=== PATIENT | female | born 1985 | race Caucasian/White ===

== ENCOUNTER 2017-12-26 15:38 | Inpatient (IN) | payer OTHER ==
[2017-12-26 15:42] VITALS: BMI 23.8
--- NOTE | 2017-12-26 16:10 | PDOC ---
History of Present Illness - General Chief Complaint: Pain Stated Complaint: ABD PAIN Time Seen by Provider: 12/26/17 15:53 - History of Present Illness Initial Comments: 12/26/17 16:21 The patient is a 32 year old female with a history of gestational diabetes who presents for evaluation of abdominal pain. The patient reports a 4 day history of crampy epigastric abdominal pain with radiation into her back that has not improved prompting her presentation to the ED for further evaluation. She reports some nausea, but otherwise denies fevers, chills, SOB, chest pain, vomiting, or changes with urination or bowel movements. Past History - Past Medical History Allergies/Adverse Reactions: Allergies Allergy/AdvReac Type Severity Reaction Status Date / Time No Known Allergies Allergy Verified 12/26/17 15:42 Home Medications: Ambulatory Orders Pantoprazole Sodium [Protonix] 40 mg PO DAILY #14 tablet. 11/24/14 Metformin HCl 500 mg PO DAILY 12/26/17 Asthma: No Cancer: No Cardiac Disorders: No COPD: No Diabetes: Yes (gestational 1ST PREG) HTN: No Seizures: No Thyroid Disease: No - Surgical History Cholecystectomy: Yes - Reproductive History (#): 2 Para: 0 Therapeutic (s) & number: No Spontaneous : 1 - Immunization History Immunization Up to Date: Yes - Suicide/Smoking/Psychosocial Hx Smoking Status: No Smoking History: Never smoked Number of Cigarettes Smoked Daily: 0 Hx Alcohol Use: No Drug/Substance Use Hx: No Substance Use Type: None Hx Substance Use Treatment: No Review of Systems - Review of Systems Comments:: 12/26/17 16:29 Constitutional: No fevers, chills, fatigue, malaise HEENT: No Rhinorrhea, nasal congestion, visual changes Cardiovascular: No chest pain, syncope, palpitations, lightheadedness Respiratory: No Cough, SOB, Hemoptysis, Gastrointestinal: Abdominal pain, Nausea. No Vomiting, Constipation, Diarrhea, Melena Genitourinary: No Dysuria, Frequency, Urgency, Hesitancy, Hematuria, Flank pain Musculoskeletal: No Myalgia, arthralgia Skin: No rashes, itching, bruising, pallor Neurologic: No Headache, Dizziness, Numbness, Weakness, or Tingling Psychiatric: No Hallucinations. No SI or HI *Physical Exam - Vital Signs Last Vital Signs Temp Pulse Resp BP Pulse Ox 98.3 F 101 H 20 149/88 99 12/26/17 15:40 12/26/17 15:40 12/26/17 15:40 12/26/17 15:40 12/26/17 15:40 - Physical Exam Comments: 12/26/17 16:30 General Appearance: Nourished. No Apparent Distress HEENT: EOMI, LUCIA. No Pharyngeal Erythema, Tonsillar Exudate, Tonsillar Erythema Neck: No Cervical Lymphadenopathy Respiratory/Chest: Lungs Clear, Normal Breath Sounds. No Crackles, Rales, Rhonchi, Wheezing Cardiovascular: Regular Rhythm, Regular Rate. No Murmur, Gallops, Rubs Gastrointestinal/Abdominal: Normal Bowel Sounds, Soft. Mild tenderness to deep palpation in the epigastric region. No Guarding, Rebound, Musculoskeletal: No CVA Tenderness Extremity: Normal Capillary Refill Integumentary: Normal Color, Dry, Warm Neurologic: Fully Oriented, Alert, Normal Mood/Affect, Normal Response, ED Treatment Course - LABORATORY CBC & Chemistry Diagram: 12/27/17 06:15 12/27/17 06:15 Medical Decision Making - Medical Decision Making 12/26/17 16:30 The patient is a 32 year old female with a history of gestational diabetes who presents for evaluation of abdominal pain. Differential includes but is not limited to: ACS, Gastritis, Pancreatitis, infectious, metabolic derangement. Given the patient's history and physical exam, it is likely her symptoms are due to a gastritis. However we will obtain a cbc, cmp, troponin, lipase, ekg to evaluate further. We will treat in the meantime with iv fluids, pepcid, maalox, viscous lidocaine. We will continue to monitor and reassess in the meantime. 12/26/17 18:41 CBC is unremarkable. CMP demonstrates an elevated t.bili to 3.9 as well as elevations in the patient's liver enzymes. We are concerned for a choledocholethiasis. We will obtain an abdominal US to evaluate further and continue to monitor and reassess. Patient dispo pending US of the abdomen. 12/26/17 18:52 *DC/Admit/Observation/Transfer Diagnosis at time of Disposition: Choledocholithiasis, Transaminitis - Discharge Dispostion Condition at time of disposition: Fair - Referrals - Patient Instructions - Post Discharge Activity
[2017-12-26] MEDS ORDERED: LIDOCAINE VISCOUS 2% ORAL/TOP 20 ML UNIT-DOSE CUP MM ONE (16:11)
[2017-12-26] MEDS ORDERED: SODIUM CHLORIDE 1,000 ML IV STA (16:11)
[2017-12-26] MEDS ORDERED: FAMOTIDINE 20 MG/50 ML IVPB 20 MG/50 ML MG IVPB ONE ×2 (16:11→16:27)
[2017-12-26] MEDS ORDERED: ONDANSETRON 4 MG/2 ML VIAL IVPUSH ONE (16:11)
[2017-12-26] MEDS ORDERED: MAG HYDROX/AL HYDROX/SIMETH 30 ML UNIT-DOSE CUP PO ONE (16:11)
--- NOTE | 2017-12-26 16:19 | PDOC ---
Attending Attestation - Medical Decision Making 12/26/17 16:57 ekg nsr @ 78 bpm <Maria Isabel Holley - Last Filed: 12/26/17 16:57> - Resident Resident Name: Lele Claudio - ED Attending Attestation I have performed the following: I have examined & evaluated the patient, The case was reviewed & discussed with the resident, I agree w/resident's findings & plan, Exceptions are as noted - HPI HPI: 12/26/17 16:18 32 yo female p/w epigastric pain - Physicial Exam PE: 12/26/17 18:30 32 yo female p/w epigastric pain with nausea head ncat neck supple lungs cta b/l cvs [id number] abd ++epigastric tenderness ext no e/c/c neuro axox3, ambulatory,no gross deformity - Medical Decision Making 12/26/17 18:37 all her LFTs are elevated imaging pending 12/26/17 23:53 US dilated CBD, 7mm stone in duct, pt admitted <Candace Marcos - Last Filed: 12/26/17 23:54>
[2017-12-26] MEDS ORDERED: ONDANSETRON 4 MG/2 ML VIAL ONE (16:27)
[2017-12-26] MEDS ORDERED: MAG HYDROX/AL HYDROX/SIMETH 30 ML UNIT-DOSE CUP ONE (16:27)
[2017-12-26] MEDS ORDERED: LIDOCAINE VISCOUS 2% ORAL/TOP 20 ML UNIT-DOSE CUP ONE (16:27)
[2017-12-26 16:46] LABS: BASO % 0.6 % (0-2.0); EOS % 0.5 % (0-4.5); HEMATOCRIT 36.6 % (32.4-45.2); HEMOGLOBIN 12.1 GM/dL (10.7-15.3); LYMPH % 18.3 % (8-40); MCH 26.7 pg (25.7-33.7); MCHC 33.1 g/dl (32.0-36.0); MEAN CELL VOLUME 80.6 fl (80-96); MEAN PLT VOLUME 9.6 fl (7.5-11.1); MONO % 7.6 % (3.8-10.2); PLATELET COUNT 195 K/MM3 (134-434); RBC 4.54 M/mm3 (3.60-5.2); RDW 13.9 % (11.6-15.6); WHITE BLOOD COUNT 5.4 K/mm3 (4.0-10.0)
[2017-12-26 16:47] LABS: URINE APPEARANCE CLEAR; URINE BILIRUBIN NEGATIVE (<2.0 mg/dL); URINE COLOR YELLOW; URINE GLUCOSE (UA) 3+ (NEGATIVE); URINE KETONE NEGATIVE (NEGATIVE); URINE LEUK ESTERASE NEGATIVE (NEGATIVE); URINE NITRITE NEGATIVE (NEGATIVE); URINE PROTEIN NEGATIVE (NEGATIVE); URINE UROBILINOGEN NEGATIVE mg/dL (0.2-1.0)
[2017-12-26 17:11] LABS: ALBUMIN 3.9 g/dl (3.4-5.0); ANION GAP 7 (8-16); BLOOD UREA NITROGEN 5 mg/dL (7-18); CALCIUM 8.3 mg/dL (8.5-10.1); CHLORIDE 105 mmol/L (98-107); CO2 25 mmol/L (21-32); CREATININE 0.9 mg/dL (0.55-1.02); GLUCOSE,RANDOM 206 mg/dL (74-106); LIPASE 149 U/L (73-393); POTASSIUM 3.6 mmol/L (3.5-5.1); SGOT/AST 116 U/L (15-37); SGPT/ALT 395 U/L (12-78); SODIUM 137 mmol/L (136-145)
[2017-12-26 17:16] LABS: ALK PHOS 406 U/L (45-117); BILIRUBIN,TOTAL 3.9 mg/dL (0.2-1.0); TOT PROT 8.1 g/dl (6.4-8.2)
--- NOTE | 2017-12-26 20:18 | PDOC ---
*Physical Exam - Vital Signs Last Vital Signs Temp Pulse Resp BP Pulse Ox 98.3 F 101 H 20 149/88 99 12/26/17 15:40 12/26/17 15:40 12/26/17 15:40 12/26/17 15:40 12/26/17 15:40 12/26/17 19:[address] Claudio at the end of his shift. Patient is a 32 YOF who p /w epigastric pain radiating to her back and nausea. Pain improved but still present after ED medications. Patient had US here in the ED already and now awaiting imaging immigration paralegal results. ED Treatment Course - LABORATORY CBC & Chemistry Diagram: 12/26/17 16:38 12/26/17 16:38 - ADDITIONAL ORDERS Additional order review: Laboratory Results 12/26/17 12/26/17 16:38 16:38 Sodium 137 Potassium 3.6 Chloride 105 Carbon Dioxide 25 Anion Gap 7 L BUN 5 L Creatinine 0.9 Creat Clearance w eGFR > 60 Random Glucose 206 H Calcium 8.3 L Total Bilirubin 3.9 H D AST 116 H ALT 395 H Alkaline Phosphatase 406 H Creatine Kinase 94 Troponin I < 0.02 Total Protein 8.1 Albumin 3.9 Lipase 149 Urine Color Yellow Urine Appearance Clear Urine pH 6.0 Ur Specific [place] 1.001 Urine Protein Negative Urine Glucose (UA) 3+ H Urine Ketones Negative Urine Blood Negative Urine Nitrite Negative Urine Bilirubin Negative Urine Urobilinogen Negative Ur Leukocyte Esterase Negative 12/26/17 16:38 RBC 4.54 MCV 80.6 MCHC 33.1 RDW 13.9 MPV 9.6 Neutrophils % 73.0 Lymphocytes % 18.3 Monocytes % 7.6 Eosinophils % 0.5 Basophils % 0.6 - Medications Given in the ED: ED Medications Discontinued Medications Generic Name Dose Route Start Last Admin Trade Name Freq PRN Reason Stop Dose Admin Al Hydroxide/Mg Hydroxide 30 ml 12/26/17 16:11 12/26/17 16:43 Mylanta Oral Suspension - PO 12/26/17 16:12 30 ml ONCE ONE Administration Famotidine/Sodium Chloride 20 mg in 50 mls @ 100 mls/hr 12/26/17 16:11 16:43 Pepcid 20 Mg Premixed Ivpb - IVPB 12/26/17 16:40 100 mls/hr ONCE ONE Administration Sodium Chloride 1,000 mls @ 1,000 mls/hr 12/26/17 16:11 12/26/17 16:39 Normal Saline - IV 12/26/17 17:10 1,000 mls/hr ASDIR STA Administration Lidocaine HCl 20 ml 12/26/17 16:11 12/26/17 16:43 Xylocaine 2% Viscous Oral - MM 12/26/17 16:12 20 ml ONCE ONE Administration Ondansetron HCl 4 mg 12/26/17 16:11 12/26/17 16:43 Zofran Injection IVPUSH 12/26/17 16:12 4 mg ONCE ONE Administration Medical Decision Making - Medical Decision Making Imaging immigration paralegal report shows CBD dilatation to 13mm, stone with diameter 7mm, wall thickening to 4mm. 12/26/17 21:[address] Starks who will see the patient in consult. Consult order placed to Dr. Starks. Spoke with Dr. Webb who is immigration paralegal for Dr. Dunne. He recommends NPO, Zosyn, ensure coags and T&S done. Consult order placed for Dr. Dunne with GI. Anne ordered as well as another 1000cc IVF. *DC/Admit/Observation/Transfer Diagnosis at time of Disposition: Choledocholithiasis, Transaminitis - Discharge Dispostion Condition at time of disposition: Guarded Admit: Yes - Referrals Referrals: Aleena Sanchez MD [Primary Care Provider] - - Patient Instructions - Post Discharge Activity
--- NOTE | 2017-12-26 21:31 | PN ---
Teaching Attending Note Name of Resident: Nancy Bean ATTENDING PHYSICIAN STATEMENT I saw and evaluated the patient. I reviewed the resident's note and discussed the case with the resident. I agree with the resident's findings and plan as documented. SUBJECTIVE: 32 yo F who presents with abd pain, DM, located in her right upper quadrant. States her pain is located in her epigastric area and is constant. No N, V, D. No fevers or chills. No chest pain or pressure. OBJECTIVE: Physical: VS: Vital Signs Period Temp Pulse Resp BP Sys/Russ Pulse Ox Last 24 Hr 98.3 F 88-101 18-20 125-149/82-88 99-100 GEN: NAD, Resting in bed, AA0X3 HEENT: NCAT, PERRL, Throat without erythema or exudates CARD: RRR S1, S2 RESP: CTAB ABD: BS X4, Mild laya-epigastric tendernss on palpation EXT: - C/C/E CBCD WBC 5.4 K/mm3 (4.0-10.0) D 12/26/17 16:38 RBC 4.54 M/mm3 (3.60-5.2) 12/26/17 16:38 Hgb 12.1 GM/dL (10.7-15.3) 12/26/17 16:38 Hct 36.6 % (32.4-45.2) 12/26/17 16:38 MCV 80.6 fl (80-96) 12/26/17 16:38 MCHC 33.1 g/dl (32.0-36.0) 12/26/17 16:38 RDW 13.9 % (11.6-15.6) 12/26/17 16:38 Plt Count 195 K/MM3 (134-434) 12/26/17 16:38 MPV 9.6 fl (7.5-11.1) 12/26/17 16:38 CMP Sodium 137 mmol/L (136-145) 12/26/17 16:38 Potassium 3.6 mmol/L (3.5-5.1) 12/26/17 16:38 Chloride 105 mmol/L (98-107) 12/26/17 16:38 Carbon Dioxide 25 mmol/L (21-32) 12/26/17 16:38 Anion Gap 7 (8-16) L 12/26/17 16:38 BUN 5 mg/dL (7-18) L 12/26/17 16:38 Creatinine 0.9 mg/dL (0.55-1.02) 12/26/17 16:38 Creat Clearance w eGFR > 60 (>60) 12/26/17 16:38 Random Glucose 206 mg/dL (74-106) H 12/26/17 16:38 Calcium 8.3 mg/dL (8.5-10.1) L 12/26/17 16:38 Total Bilirubin 3.9 mg/dL (0.2-1.0) H D 12/26/17 16:38 AST 116 U/L (15-37) H 12/26/17 16:38 ALT 395 U/L (12-78) H 12/26/17 16:38 Alkaline Phosphatase 406 U/L (45-117) H 12/26/17 16:38 Total Protein 8.1 g/dl (6.4-8.2) 12/26/17 16:38 Albumin 3.9 g/dl (3.4-5.0) 12/26/17 16:38 CARDIAC ENZYMES Creatine Kinase 94 IU/L (26-192) 12/26/17 16:38 Troponin I < 0.02 ng/ml (0.00-0.05) 12/26/17 16:38 ABD US: Cholithiasis with thickened gallbladder and dilated CBD. 7mm Gallstone. ASSESSMENT AND PLAN: 32 F with Right Upper Quadrant Pain with gallstone and increased LFTS. 1.) ABD Pain- Choledocholithiasis - NPO - Stat urine HCG - GI for ERCP - CBC, coags - Zosyn in ED - ID consult - Type & Screen - SX/GI consult 2.) DM - FS - RAISS - Hold Metformin 2.) DVT Ppx - SCDs Place in Med-Sx
[2017-12-26] MEDS ORDERED: SODIUM CHLORIDE 0.9% 500 ML INFUS.BAG IV ONE (21:36)
--- NOTE | 2017-12-26 21:36 | CONSULT ---
Consult Consult Specialty:: general surgery Referred by:: Dr. Hernandez Reason for Consultation:: choledocholithiasis - History of Present Illness Chief Complaint: epigastric pain History of Present Illness: 32 yo female PMH Diabetes,presented to the emergency department with 10/10, constant, epigastric pain with radiation to the back that started on Wednesday. Movement and eating aggravates the pain. Patient says she has not eaten much since Wednesday. She has been nauseas and vomited once on Wednesday with no memory of the description. Patient presented in 2012 for abdominal pain and was told to have a cholecystectomy but she said she was at the time. She also said she couldn't follow up after was because she lost her insurance. Patient denies chest pain, fevers, sob, dizziness, dysuria, diarrhea, blood in stool. We were asked to assess. - History Source History Provided By: Patient, Medical Record Limitations to Obtaining History: No Limitations - Past Medical History ...LMP: 07/16/14 - Alcohol/Substance Use Hx Alcohol Use: No - Smoking History Smoking history: Never smoked Aproximately how many cigarettes per day: 0 Home Medications - Allergies Allergies/Adverse Reactions: Allergies Allergy/AdvReac Type Severity Reaction Status Date / Time No Known Allergies Allergy Verified 12/26/17 15:42 - Home Medications Home Medications: Ambulatory Orders Pantoprazole Sodium [Protonix] 40 mg PO DAILY #14 tablet. 11/24/14 Metformin HCl 500 mg PO DAILY 12/26/17 Review of Systems - Review of Systems Constitutional: denies: Chills, Fever Eyes: denies: Blurred Vision, Recent Change in Vision HENT: denies: Difficult Swallowing, Throat Pain Neck: denies: Stiffness, Swollen Glands, Tenderness Cardiovascular: denies: Chest Pain, Palpitations Respiratory: denies: Cough, SOB Gastrointestinal: reports: Abdominal Pain, Indigestion Genitourinary: denies: Discharge, Dysuria Breasts: reports: No Symptoms Reported. denies: Pain Musculoskeletal: denies: Muscle Pain, Muscle Weakness Integumentary: denies: Lesions, Rash Neurological: denies: Change in LOC, Change in Speech Endocrine: denies: Unexplained Weight Gain, Unexplained Weight Loss Hematology/Lymphatic: denies: Easily Bruised, Excessive Bleeding Psychiatric: denies: Anxiety, Depression Physical Exam Vital Signs: Vital Signs Temperature 98.3 F 12/26/17 15:40 Pulse Rate 88 12/26/17 21:08 Respiratory Rate 18 12/26/17 21:08 Blood Pressure 125/82 12/26/17 21:08 O2 Sat by Pulse Oximetry (%) 100 12/26/17 21:08 Vital Signs Period Temp Pulse Resp BP Sys/Russ Pulse Ox Last 24 Hr 98 F-99.2 F 72-101 16-20 125-149/71-88 98-100 Intake & Output 12/26/17 12/27/17 12/27/17 23:59 07:59 15:59 Intake Total 1250 1000 0 Output Total 600 450 Balance 1250 400 -450 Weight 130 lb Intake: IV 1150 900 0 Normal Saline - 1,000 ml 1000 450 @ 1000 mls/hr IV ASDIR STA Rx#:[id number] Normal Saline - 1,000 ml 150 450 @ 75 mls/hr IV ASDIR MAULIK Rx#:[id number] IVPB 100 100 Output: Urine 600 450 Void 600 450 Other: Voiding Method Toilet Toilet Toilet Bowel Movement No No Height 5 ft 2 in Body Mass Index (BMI) 23.8 Weight Measurement Method Standing Scale Labs: CBC,CMP WBC 5.4 K/mm3 (4.0-10.0) D 12/26/17 16:38 RBC 4.54 M/mm3 (3.60-5.2) 12/26/17 16:38 Hgb 12.1 GM/dL (10.7-15.3) 12/26/17 16:38 Hct 36.6 % (32.4-45.2) 12/26/17 16:38 MCV 80.6 fl (80-96) 12/26/17 16:38 MCH 26.7 pg (25.7-33.7) 12/26/17 16:38 MCHC 33.1 g/dl (32.0-36.0) 12/26/17 16:38 RDW 13.9 % (11.6-15.6) 12/26/17 16:38 Plt Count 195 K/MM3 (134-434) 12/26/17 16:38 MPV 9.6 fl (7.5-11.1) 12/26/17 16:38 Neutrophils % 73.0 % (42.8-82.8) 12/26/17 16:38 Lymphocytes % 18.3 % (8-40) 12/26/17 16:38 Monocytes % 7.6 % (3.8-10.2) 12/26/17 16:38 Eosinophils % 0.5 % (0-4.5) 12/26/17 16:38 Basophils % 0.6 % (0-2.0) 12/26/17 16:38 Sodium 137 mmol/L (136-145) 12/26/17 16:38 Potassium 3.6 mmol/L (3.5-5.1) 12/26/17 16:38 Chloride 105 mmol/L (98-107) 12/26/17 16:38 Carbon Dioxide 25 mmol/L (21-32) 12/26/17 16:38 Anion Gap 7 (8-16) L 12/26/17 16:38 BUN 5 mg/dL (7-18) L 12/26/17 16:38 Creatinine 0.9 mg/dL (0.55-1.02) 12/26/17 16:38 Creat Clearance w eGFR > 60 (>60) 12/26/17 16:38 Random Glucose 206 mg/dL (74-106) H 12/26/17 16:38 Calcium 8.3 mg/dL (8.5-10.1) L 12/26/17 16:38 Total Bilirubin 3.9 mg/dL (0.2-1.0) H D 12/26/17 16:38 AST 116 U/L (15-37) H 12/26/17 16:38 ALT 395 U/L (12-78) H 12/26/17 16:38 Alkaline Phosphatase 406 U/L (45-117) H 12/26/17 16:38 Creatine Kinase 94 IU/L (26-192) 12/26/17 16:38 Troponin I < 0.02 ng/ml (0.00-0.05) 12/26/17 16:38 Total Protein 8.1 g/dl (6.4-8.2) 12/26/17 16:38 Albumin 3.9 g/dl (3.4-5.0) 12/26/17 16:38 Lipase 149 U/L (73-393) 12/26/17 16:38 Imaging - Results Ultrasound: Report Reviewed, Image Reviewed (small stones in a distended and inflamed GB with wall thickening, CBD 1.25cm) Problem List - Problems (1) Calculus common 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 NPo and IVF hydration empiric IV antibiotics GI eval for ERCP Trend labs Discussed with patient risks, benefits and alternatives of laparoscopic possible open cholecystectomy, including but not limited to bleeding, infection , injury to adjacent structures, leak or injury, intraabdominal abscess, need for further procedures, ; alternatives include antibiotics, delayed or no surgery - risks of this include failure of nonoperative therapy, perforation, sepsis, recurrence, .Patient desires to proceed with operation - will take to OR for above. Informed consent signed for same. Thank you for the opportunity to participate in the care of this patient. Code(s): K80.41 - CALCULUS OF BILE DUCT W CHOLECYSTITIS, UNSP, W OBSTRUCTION (2) Choledocholithiasis Code(s): K80.50 - CALCULUS OF BILE DUCT W/O CHOLANGITIS OR CHOLECYST W/O OBST (3) Transaminitis Code(s): R74.0 - NONSPEC ELEV OF LEVELS OF TRANSAMNS & LACTIC ACID DEHYDRGNSE (4) Gastroesophageal reflux during in second trimester, antepartum Code(s): O99.612 - DISEASES OF THE DGSTV SYS COMP , SECOND TRIMESTER; K21.9 - GASTRO-ESOPHAGEAL REFLUX DISEASE WITHOUT ESOPHAGITIS
[2017-12-26] MEDS ORDERED: PIPERACILLIN/TAZOB 4.5 GM 4.5 GM in DEXTROSE 5%-WATER 100 ML IVPB SCH (21:45)
[2017-12-26 21:57] LABS: INR 0.88 (0.82-1.09)
[2017-12-26 21:59] LABS: ACTIVATED PTT 29.9 SECONDS (26.9-34.4)
[2017-12-26] MEDS ORDERED: PIPERACILLIN/TAZOB 4.5 GM 4.5 GM/100 ML BAG IVPB ONE (22:22)
[2017-12-26] MEDS ORDERED: ONDANSETRON 4 MG/2 ML VIAL IVPUSH PRN (22:22)
[2017-12-26] MEDS ORDERED: HEPARIN NA (PORCINE) 5,000 UNITS/ML 1ML VIAL SQ SCH (22:30)
[2017-12-26] MEDS ORDERED: HEPARIN NA (PORCINE) 5,000 UNITS/ML 1ML VIAL ONE (22:34)
--- NOTE | 2017-12-26 22:40 | HP ---
CHIEF COMPLAINT: abdominal pain PCP: Dr. Rdz HISTORY OF PRESENT ILLNESS: Patient is a 32 yo F with a PMHx of Diabetes, presented to the ED because of 06/01, constant, epigastric pain with radiation to the back that started on Wednesday. Movement and eating aggravates the pain. Patient says she has not eaten much since Wednesday. She has been nauseas and vomited once on Wednesday with no memory of the description. Patient presented in 2012 for abdominal pain and was told to have a cholecystectomy but she said she was at the time. She also said she couldn't follow up after was because she lost her insurance. Patient denies chest pain, fevers, sob, dizziness, dysuria, diarrhea, blood in stool. ER course was notable for: (1) Ast 116, ALT 395, Alk phos 406 (2) Abd US prelim: Cholithiasis with thickened gallbladder and dilated CBD. 7mm Gallstone. (3) Recent Travel: denies PAST MEDICAL HISTORY: DM PAST SURGICAL HISTORY: Social History: Smoking: denies Family History: Allergies No Known Allergies Allergy (Verified 12/26/17 15:42) HOME MEDICATIONS: Home Medications Medication Instructions Recorded Pantoprazole Sodium [Protonix] 40 mg PO DAILY #14 tablet. 11/24/14 REVIEW OF SYSTEMS CONSTITUTIONAL: loss of appetite Absent: fever, chills, diaphoresis, generalized weakness, malaise, weight change HEENT: Absent: rhinorrhea, nasal congestion, throat pain, throat swelling, difficulty swallowing, mouth swelling, ear pain, eye pain, visual changes CARDIOVASCULAR: Absent: chest pain, syncope, palpitations, irregular heart rate, lightheadedness , peripheral edema RESPIRATORY: Absent: cough, shortness of breath, dyspnea with exertion, orthopnea, wheezing, stridor, hemoptysis GASTROINTESTINAL: abdominal pain, nausea, vomiting Absent: abdominal distension, nausea, constipation, melena, hematochezia GENITOURINARY: Absent: dysuria, frequency, urgency, hesitancy, hematuria, flank pain, genital pain SKIN: Absent: rash, itching, pallor ENDOCRINE: Absent: unexplained weight gain, unexplained weight loss, heat intolerance, cold intolerance PHYSICAL EXAMINATION Vital Signs - 24 hr 12/26/17 12/26/17 15:40 21:08 Temperature 98.3 F Pulse Rate 101 H Pulse Rate [ 88 Right Radial] Respiratory 20 18 Rate Blood Pressure 149/88 Blood Pressure 125/82 [Right Arm] O2 Sat by Pulse 99 100 Oximetry (%) GENERAL: A/o x 3, NAD, appears comfortable HEAD: Normal with no signs of trauma. EYES: extraocular movements intact, sclera anicteric, conjunctiva clear. EARS, NOSE, THROAT: oropharynx clear without exudates. Moist mucous membranes. NECK: supple without lymphadenopathy, JVD, or masses. LUNGS: Breath sounds equal, clear to auscultation bilaterally. No wheezes, and no crackles. HEART:tachy. regular rhythm, normal S1 and S2 without murmur, rub or gallop. ABDOMEN: Soft, epigastric tenderness to palpation. Neg jin, no guarding. LOWER EXTREMITIES: 2+ pulses, warm, well-perfused. No calf tenderness. No peripheral edema. NEUROLOGICAL: Cranial nerves II-XII intact. Normal speech. Normal gait. Laboratory Results - last 24 hr 12/26/17 12/26/17 12/26/17 16:38 16:38 16:38 WBC 5.4 D RBC 4.54 Hgb 12.1 Hct 36.6 MCV 80.6 MCH 26.7 MCHC 33.1 RDW 13.9 Plt Count 195 MPV 9.6 Neutrophils % 73.0 Lymphocytes % 18.3 Monocytes % 7.6 Eosinophils % 0.5 Basophils % 0.6 PT with INR INR PTT (Actin FS) Sodium 137 Potassium 3.6 Chloride 105 Carbon Dioxide 25 Anion Gap 7 L BUN 5 L Creatinine 0.9 Creat Clearance w eGFR > 60 Random Glucose 206 H Calcium 8.3 L Total Bilirubin 3.9 H D AST 116 H ALT 395 H Alkaline Phosphatase 406 H Creatine Kinase 94 Troponin I < 0.02 Total Protein 8.1 Albumin 3.9 Lipase 149 Urine Color Yellow Urine Appearance Clear Urine pH 6.0 Ur Specific [place] 1.001 Urine Protein Negative Urine Glucose (UA) 3+ H Urine Ketones Negative Urine Blood Negative Urine Nitrite Negative Urine Bilirubin Negative Urine Urobilinogen Negative Ur Leukocyte Esterase Negative 12/26/17 21:30 WBC RBC Hgb Hct MCV MCH MCHC RDW Plt Count MPV Neutrophils % Lymphocytes % Monocytes % Eosinophils % Basophils % PT with INR 10.00 INR 0.88 PTT (Actin FS) 29.9 Sodium Potassium Chloride Carbon Dioxide Anion Gap BUN Creatinine Creat Clearance w eGFR Random Glucose Calcium Total Bilirubin AST ALT Alkaline Phosphatase Creatine Kinase Troponin I Total Protein Albumin Lipase Urine Color Urine Appearance Urine pH Ur Specific [place] Urine Protein Urine Glucose (UA) Urine Ketones Urine Blood Urine Nitrite Urine Bilirubin Urine Urobilinogen Ur Leukocyte Esterase ASSESSMENT/PLAN: Patient is a 32 yo F with a PMHx of Diabetes,presented to the ED because of abdominal pain #Abdominal pain -secondary to choledocholithiasis -Ast 116, ALT 395, Alk phos 406 -Abd US prelim: Cholithiasis with thickened gallbladder and dilated CBD. 7mm Gallstone. -NPO -Pain control with morphine 2mg q4h -Zofran for nausea -Type & screen, coags -Surgery consulted -Gi consulted -ID consulted -Cont. Zosyn #DM -BGM -ISS -Held metformin #FEN -75ml/hour NS -WNL -NPO #DVT -SCDs med-surge Visit type - Emergency Visit Emergency Visit: Yes ED Registration Date: 12/26/17 Care time: The patient presented to the Emergency Department on the above date and was hospitalized for further evaluation of their emergent condition. - New Patient This patient is new to me today: Yes Date on this admission: 12/28/17 - Critical Care Critical Care patient: No Hospitalist Screening - Colonoscopy Questionnaire Colonoscopy Questionnaire: Colonoscopy Questionnaire - Patient: 50 - 75 years old and never had a screening colonoscopy: Unknown History of colon or rectal polyps, or CA: Unknown History of IBD, Crohn's disease or UC: Unknown History of abdominal radiation therapy as a child: Unknown - Relative: 1 with colon or rectal CA, or polyps at age 60 or younger: Unknown Colon or rectal CA diagnosed at age 45 or younger: Unknown Multiple relatives with colon or rectal CA: Unknown - Outcome: Screening Result: Negative Screen
[2017-12-26] MEDS: SODIUM CHLORIDE 1,000 ML IV SCH (22:47)
[2017-12-26] MEDS: PIPERACILLIN/TAZOB 4.5 GM 4.5 GM in DEXTROSE 5%-WATER 100 ML IVPB SCH (22:50)
[2017-12-27] MEDS ORDERED: PIPERACILLIN/TAZOB 4.5 GM 4.5 GM in DEXTROSE 5%-WATER 100 ML IVPB SCH (02:00)
[2017-12-27] MEDS ORDERED: DEXTROSE 5%-WATER 100 ML IVPB ONE ×3 (02:50→18:11)
[2017-12-27] MEDS ORDERED: PIPERACILLIN/TAZOBACTAM 4.5 GM VIAL IVPB ONE ×3 (02:50→18:11)
[2017-12-27] MEDS: SODIUM CHLORIDE 1,000 ML IV SCH (03:03)
[2017-12-27] MEDS: PIPERACILLIN/TAZOB 4.5 GM 4.5 GM in DEXTROSE 5%-WATER 100 ML IVPB SCH ×4 (03:03→18:57)
[2017-12-27] MEDS ORDERED: PIPERACILLIN/TAZOB 2.25 GM 2.25 GM in DEXTROSE 5%-WATER - 50 ML IVPB ONE (03:45)
[2017-12-27] MEDS: INSULIN SLIDING SCALE (NOVOLOG) 1 VIAL SQ SCH ×4 (06:04→21:17)
[2017-12-27 06:45] LABS: HEMATOCRIT 33.9 % (32.4-45.2); HEMOGLOBIN 11.1 GM/dL (10.7-15.3); MCH 26.7 pg (25.7-33.7); MCHC 32.9 g/dl (32.0-36.0); MEAN CELL VOLUME 81.2 fl (80-96); MEAN PLT VOLUME 9.9 fl (7.5-11.1); PLATELET COUNT 169 K/MM3 (134-434); RBC 4.17 M/mm3 (3.60-5.2); RDW 14.2 % (11.6-15.6); WHITE BLOOD COUNT 5.6 K/mm3 (4.0-10.0)
[2017-12-27 07:08] LABS: ALBUMIN 3.2 g/dl (3.4-5.0); ANION GAP 4 (8-16); BLOOD UREA NITROGEN 5 mg/dL (7-18); CHLORIDE 108 mmol/L (98-107); CO2 27 mmol/L (21-32); GLUCOSE,RANDOM 158 mg/dL (74-106); MAGNESIUM 2.4 mg/dL (1.8-2.4); POTASSIUM 3.9 mmol/L (3.5-5.1); SGOT/AST 111 U/L (15-37); SGPT/ALT 319 U/L (12-78); SODIUM 139 mmol/L (136-145)
[2017-12-27 07:11] LABS: ALK PHOS 349 U/L (45-117); BILIRUBIN,TOTAL 4.8 mg/dL (0.2-1.0); CREATININE 0.6 mg/dL (0.55-1.02); TOT PROT 6.6 g/dl (6.4-8.2)
[2017-12-27 07:14] LABS: INR 0.91 (0.82-1.09); PROTHROMBIN TIME (PATIENT) 10.3 SEC (9.7-13.0)
--- NOTE | 2017-12-27 10:06 | CON.GI ---
Consult Consult Specialty:: GI: Dr. Hull covering for Dr. Dunne Referred by:: Hospitalist service Reason for Consultation:: Suspected choledocholithiasis - History of Present Illness Chief Complaint: "I had pain in my upper stomach" [employer] [id number] utilized as Ms. Bhagat speaks only Japanese History of Present Illness: 32F admitted through [facility] ER for evaluation of 4 days od progressively worsening upper abdominal pain and RUQ pain. The pain was initially intermittent, becoming more constant along with escalating intensity. It was reminiscent of the gallbladder problem she had experienced at age 17. She was advised to have her gallbladder removed after her at that time however never went through with the surgery. In ER she was noted to have normal WBC, Temp 99.2 and elevated liver chemistries including ALP 409 and bilirubin of 3.9. bilirubin is 4.8 this morning and ALP 349. US revealed a gallstone, contracted GB and dilated CBD of 1.3cm. Her abdominal pain is somewhat improved this morning and she has been NPO. 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 - History Source History Provided By: Patient Limitations to Obtaining History: No Limitations - Past Medical History Hepatobiliary: Yes: Other (Fatty Liver) ...LMP: 07/16/14 Endocrine: Yes: Diabetes Mellitus (DM II) - Alcohol/Substance Use Hx Alcohol Use: No - Smoking History Smoking history: Never smoked Aproximately how many cigarettes per day: 0 - Social History Usual Living Arrangement: With Spouse ADL: Independent Occupation: Currently unemployed Place of : Other ([facility]) Came to [place]year[place] 2010 History of Recent Travel: No Home Medications - Allergies Allergies/Adverse Reactions: Allergies Allergy/AdvReac Type Severity Reaction Status Date / Time No Known Allergies Allergy Verified 12/26/17 15:42 - Home Medications Home Medications: Ambulatory Orders Pantoprazole Sodium [Protonix] 40 mg PO DAILY #14 tablet. 11/24/14 Metformin HCl 500 mg PO DAILY 12/26/17 Family Disease History - Family Disease History Family Disease History: Other: Father (Alive: Healthy), Mother (Alive: heart problem), Brother (1, healthy), Sister (3, healthy), Daughter (1, healthy) Other Family History: No family history of colorectal cancer or other GI malignancy Review of Systems - Review of Systems Constitutional: denies: Chills Cardiovascular: denies: Chest Pain Respiratory: denies: SOB Gastrointestinal: reports: Abdominal Pain, Nausea. denies: Melena, Rectal Bleeding, Vomiting, Vomiting Blood Physical Exam-GI Vital Signs: Vital Signs Temperature 98.2 F 12/27/17 09:30 Pulse Rate 72 12/27/17 09:30 Respiratory Rate 16 12/27/17 09:30 Blood Pressure 137/86 12/27/17 09:30 O2 Sat by Pulse Oximetry (%) 98 12/26/17 23:16 Constitutional: Yes: Well Nourished Eyes: Yes: Sclera Icterus Cardiovascular: Yes: Regular Rate and Rhythm. No: Murmur Respiratory: Yes: CTA Bilaterally Gastrointestinal Inspection: No: Distention, Hernia ...Auscultate: Yes: Normoactive Bowel Sounds ...Palpate: Yes: Soft, Tenderness (TTP RUQ, + Parra's sign). No: Guarding, Hepatomegaly, Splenomegaly, Tenderness, Rebound ...Percussion: No: Tympanitic Edema: No Neurological: Yes: Alert, Oriented Labs: CBC, BMP 12/27/17 06:15 12/27/17 06:15 INR, PTT INR 0.91 (0.82-1.09) 12/27/17 06:15 Hepatic Panel Total Bilirubin 4.8 mg/dL (0.2-1.0) H D 12/27/17 06:15 AST 111 U/L (15-37) H 12/27/17 06:15 ALT 319 U/L (12-78) H 12/27/17 06:15 Alkaline Phosphatase 349 U/L (45-117) H 12/27/17 06:15 Albumin 3.2 g/dl (3.4-5.0) L 12/27/17 06:15 Imaging - Results Ultrasound: Report Reviewed Problem List - Problems (1) Dilated bile duct Assessment/Plan: Given clinical picture, suspect symptomatic choledocholithiasis +/- cholecystitis I explained this to Ms. Bhagat via [employer] lever [employer] [id number]. I explained that for further evaluation of the bile duct and for stone extraction if necessary, ERCP can be undertaken. We discussed potential risks of the procedure like but not limited to bleeding, perforation requiring surgery to repair, infection, pancreatitis (occurring in 5-10% of cases. Discussed that this could be mild to life threateningly severe), sedation medication effects, all of which could be potentially life threatening. She has agreed to the procedure. I explained that once ERCP performed and bile duct has been further examined, she will then need gallbladder removed. For now: NPO IV Hydration IV Abx: On Zosyn Surgery already consulted Monitor LFT's post procedure Indocin suppository 50mg x 1 ordered pre-procedure Code(s): K83.8 - OTHER SPECIFIED DISEASES OF BILIARY TRACT
--- NOTE | 2017-12-27 10:08 | CON.ID ---
Consult Consult Specialty:: infectious disease Referred by:: hospitalist service Reason for Consultation:: suspected choledocholithiasis - History of Present Illness Chief Complaint: abdominal pain RUQ and nausea History of Present Illness: 32 year old female presents with RUQ pain and nausea no fevers or chills found to have abnormal LFTS and dilated CBD on ultrasound concern for cholangitis raised asked to see her prior to ERCP today she is NPO zosyn was started last night one child 11 months 2 miscarraiges HIV negative no risk factors - History Source History Provided By: Patient Limitations to Obtaining History: Language Barrier - Past Medical History ...LMP: 07/16/14 Endocrine: Yes: Other (gestational diabetes) - Past Surgical History Additional Surgical History: bilateral tubal ligation - Alcohol/Substance Use Hx Alcohol Use: No History of Substance Use: reports: None - Smoking History Smoking history: Never smoked Aproximately how many cigarettes per day: 0 - Social History Usual Living Arrangement: With Child ADL: Independent Place of : Other ([facility]) History of Recent Travel: No Home Medications - Allergies Allergies/Adverse Reactions: Allergies Allergy/AdvReac Type Severity Reaction Status Date / Time No Known Allergies Allergy Verified 12/26/17 15:42 - Home Medications Home Medications: Ambulatory Orders Pantoprazole Sodium [Protonix] 40 mg PO DAILY #14 tablet. 11/24/14 Metformin HCl 500 mg PO DAILY 12/26/17 Review of Systems - Review of Systems Constitutional: reports: No Symptoms. denies: Chills, Diaphoresis, Fever Eyes: reports: No Symptoms HENT: reports: No Symptoms. denies: Difficult Swallowing Neck: reports: No Symptoms Cardiovascular: reports: No Symptoms. denies: Chest Pain, Edema Respiratory: reports: No Symptoms. denies: Cough, SOB Gastrointestinal: reports: Abdominal Pain, Nausea. denies: Vomiting Genitourinary: reports: No Symptoms Musculoskeletal: reports: No Symptoms Integumentary: reports: No Symptoms Neurological: reports: No Symptoms Endocrine: reports: No Symptoms Hematology/Lymphatic: reports: No Symptoms Psychiatric: reports: No Symptoms Physical Exam Vital Signs: Vital Signs Temperature 98.2 F 12/27/17 09:30 Pulse Rate 72 12/27/17 09:30 Respiratory Rate 16 12/27/17 09:30 Blood Pressure 137/86 12/27/17 09:30 O2 Sat by Pulse Oximetry (%) 98 12/26/17 23:16 Constitutional: Yes: Well Nourished, No Distress Eyes: Yes: Conjunctiva Clear HENT: Yes: Atraumatic, Normocephalic Neck: Yes: Supple, Trachea Midline Cardiovascular: Yes: Regular Rate and Rhythm Respiratory: Yes: Regular, CTA Bilaterally Gastrointestinal: Yes: Normal Bowel Sounds, Soft, Other (ruq pain to palpation) ...Rectal Exam: Yes: Deferred Musculoskeletal: Yes: WNL Extremities: Yes: WNL Edema: No Integumentary: Yes: WNL Psychiatric: Yes: Alert, Oriented Labs: CBC, BMP 12/27/17 06:15 12/27/17 06:15 Imaging - Results Ultrasound: Report Reviewed Assessment/Plan choledocholithiasis for ERCP today continue zosyn periprocedure patient agreeable to HIV testing- will order gi/surgery followup ongoing please call back if needed
[2017-12-27] MEDS ORDERED: INDOMETHACIN 50 MG RECTAL SUPPOSITORY PR ONE ×2 (10:17→11:35)
[2017-12-27] MEDS: PANTOPRAZOLE 40 MG TABLET (FP) PO SCH (10:27)
--- NOTE | 2017-12-27 10:44 | EKG ---
Test Reason : Blood Pressure : / mmHG Vent. Rate : 078 BPM Atrial Rate : 078 BPM P-R Int : 146 ms QRS Dur : 070 ms QT Int : 372 ms P-R-T Axes : 030 052 068 degrees QTc Int : 424 ms NORMAL SINUS RHYTHM NORMAL ECG NO PREVIOUS ECGS AVAILABLE Confirmed by ROSA FERNÁNDEZ MD ([id number]) on 12/27/2017 10:43:59 AM Referred By: Confirmed By:ROSA FERNÁNDEZ MD
[2017-12-27] MEDS ORDERED: ROCURONIUM BROMIDE 50 MG/5 ML VIAL ONE (11:26)
[2017-12-27] MEDS ORDERED: PROPOFOL 20 ML ONE (11:26)
[2017-12-27] MEDS ORDERED: ONDANSETRON 4 MG/2 ML VIAL ONE (11:26)
[2017-12-27] MEDS ORDERED: NEOSTIGMINE METHYLSULFATE 0.5 MG/ML - 10 ML MDV ONE (11:27)
[2017-12-27] MEDS ORDERED: GLYCOPYRROLATE 0.2 MG/1 ML VIAL ONE ×3 (11:27)
[2017-12-27] MEDS ORDERED: METOCLOPRAMIDE HCL INJECTION 10 MG/2 ML VIAL ONE (11:27)
[2017-12-27] MEDS ORDERED: SODIUM CHLORIDE 1,000 ML IV SCH (12:48)
--- NOTE | 2017-12-27 13:13 | PN ---
Progress Note (short form) - Note Progress Note: GI Procedure NOte: Please see scanned ERCP note. 2 of the 3 CBD stones were removed. The largest was stuck in the mid-CBD and could not be removed by balloon or basket so a 7FR stent was placed to allow drainage. Will need ERCP after 3 months of Actigal or referral to tertiary care center for lithotripsy. Discussed via interpeter with the patient. Also discussed with Dr Dawkins and Dr Starks.
[2017-12-27] MEDS ORDERED: LACTATED RINGERS SOLUTION 1,000 ML/1,000 ML INFUS.BAG IV SCH (13:15)
--- NOTE | 2017-12-27 14:16 | PN ---
Teaching Attending Note Name of Resident: Salinas Barclay ATTENDING PHYSICIAN STATEMENT I saw and evaluated the patient. I reviewed the resident's note and discussed the case with the resident. I agree with the resident's findings and plan as documented. SUBJECTIVE: No complaints. OBJECTIVE: Vital Signs Period Temp Pulse Resp BP Sys/Russ Pulse Ox Last 24 Hr 97 F-99.2 F 63-101 14-20 125-149/68-88 98-100 HEART: S1S2, RRR LUNGS: Clear ABDOMEN: Soft, non-tender, non-distended, normal BS EXTREMITIES: No edema Laboratory Results - last 24 hr 12/26/17 12/26/17 12/26/17 16:38 16:38 16:38 WBC 5.4 D RBC 4.54 Hgb 12.1 Hct 36.6 MCV 80.6 MCH 26.7 MCHC 33.1 RDW 13.9 Plt Count 195 MPV 9.6 Neutrophils % 73.0 Lymphocytes % 18.3 Monocytes % 7.6 Eosinophils % 0.5 Basophils % 0.6 PT with INR INR PTT (Actin FS) Sodium 137 Potassium 3.6 Chloride 105 Carbon Dioxide 25 Anion Gap 7 L BUN 5 L Creatinine 0.9 Creat Clearance w eGFR > 60 POC Glucometer Random Glucose 206 H Calcium 8.3 L Phosphorus Magnesium Total Bilirubin 3.9 H D AST 116 H ALT 395 H Alkaline Phosphatase 406 H Creatine Kinase 94 Troponin I < 0.02 Total Protein 8.1 Albumin 3.9 Lipase 149 Urine Color Yellow Urine Appearance Clear Urine pH 6.0 Ur Specific [place] 1.001 Urine Protein Negative Urine Glucose (UA) 3+ H Urine Ketones Negative Urine Blood Negative Urine Nitrite Negative Urine Bilirubin Negative Urine Urobilinogen Negative Ur Leukocyte Esterase Negative Urine HCG, Qual Blood Type Antibody Screen 12/26/17 12/26/17 12/27/17 21:30 21:30 05:55 WBC RBC Hgb Hct MCV MCH MCHC RDW Plt Count MPV Neutrophils % Lymphocytes % Monocytes % Eosinophils % Basophils % PT with INR 10.00 INR 0.88 PTT (Actin FS) 29.9 Sodium Potassium Chloride Carbon Dioxide Anion Gap BUN Creatinine Creat Clearance w eGFR POC Glucometer 154 Random Glucose Calcium Phosphorus Magnesium Total Bilirubin AST ALT Alkaline Phosphatase Creatine Kinase Troponin I Total Protein Albumin Lipase Urine Color Urine Appearance Urine pH Ur Specific [place] Urine Protein Urine Glucose (UA) Urine Ketones Urine Blood Urine Nitrite Urine Bilirubin Urine Urobilinogen Ur Leukocyte Esterase Urine HCG, Qual Blood Type O POSITIVE Antibody Screen Negative 12/27/17 12/27/17 12/27/17 06:00 06:15 06:15 WBC 5.6 RBC 4.17 Hgb 11.1 Hct 33.9 MCV 81.2 MCH 26.7 MCHC 32.9 RDW 14.2 Plt Count 169 MPV 9.9 Neutrophils % Lymphocytes % Monocytes % Eosinophils % Basophils % PT with INR 10.30 INR 0.91 PTT (Actin FS) Sodium Potassium Chloride Carbon Dioxide Anion Gap BUN Creatinine Creat Clearance w eGFR POC Glucometer Random Glucose Calcium Phosphorus Magnesium Total Bilirubin AST ALT Alkaline Phosphatase Creatine Kinase Troponin I Total Protein Albumin Lipase Urine Color Urine Appearance Urine pH Ur Specific [place] Urine Protein Urine Glucose (UA) Urine Ketones Urine Blood Urine Nitrite Urine Bilirubin Urine Urobilinogen Ur Leukocyte Esterase Urine HCG, Qual Negative Blood Type Antibody Screen 12/27/17 12/27/17 06:15 06:15 WBC RBC Hgb Hct MCV MCH MCHC RDW Plt Count MPV Neutrophils % Lymphocytes % Monocytes % Eosinophils % Basophils % PT with INR INR PTT (Actin FS) Sodium 139 Potassium 3.9 Chloride 108 H Carbon Dioxide 27 Anion Gap 4 L BUN 5 L Creatinine 0.6 Creat Clearance w eGFR > 60 POC Glucometer Random Glucose 158 H Calcium 8.0 L Phosphorus 3.0 Magnesium 2.4 Total Bilirubin 4.8 H D AST 111 H ALT 319 H Alkaline Phosphatase 349 H Creatine Kinase Troponin I Total Protein 6.6 Albumin 3.2 L Lipase Urine Color Urine Appearance Urine pH Ur Specific [place] Urine Protein Urine Glucose (UA) Urine Ketones Urine Blood Urine Nitrite Urine Bilirubin Urine Urobilinogen Ur Leukocyte Esterase Urine HCG, Qual Blood Type O POSITIVE Antibody Screen Negative Current Medications Generic Name Dose Route Start Last Admin Trade Name Freq PRN Reason Stop Dose Admin Piperacillin Sod/Tazobactam 100 mls @ 200 mls/hr 12/27/17 10:15 12/27/17 14: 08 Sod 4.5 gm/ Dextrose IVPB 200 mls/hr Q8H-IV MAULIK Administration Protocol Lactated Ringer's 1,000 ml in 1,000 mls @ 250 mls/hr 12/27/17 13:15 12/27/17 14:09 Lactated Ringers Solution IV 12/27/17 19:15 250 mls/hr ASDIR MAULIK Administration Lactated Ringer's 1,000 ml in 1,000 mls @ 200 mls/hr 12/27/17 19:15 Lactated Ringers Solution IV 12/28/17 02:15 ASDIR MAULIK Lactated Ringer's 1,000 ml in 1,000 mls @ 175 mls/hr 12/28/17 02:15 Lactated Ringers Solution IV 12/28/17 08:15 ASDIR MAULIK Lactated Ringer's 1,000 ml in 1,000 mls @ 150 mls/hr 12/28/17 08:15 Lactated Ringers Solution IV 12/28/17 14:15 ASDIR MAULIK Insulin Aspart 1 vial 12/27/17 07:00 12/27/17 11:28 Novolog Vial Sliding Scale - SQ Not Given ACHS [facility] Protocol Morphine Sulfate 2 mg 12/26/17 22:14 Morphine Sulfate IVPUSH Q4H PRN PAIN LEVEL 6-10 Ondansetron HCl 4 mg 12/26/17 22:22 Zofran Injection IVPUSH Q6H PRN NAUSEA Pantoprazole Sodium 40 mg 12/27/17 10:00 12/27/17 10:27 Protonix - PO Not Given DAILY [facility] ASSESSMENT AND PLAN: This is a 32 year old woman with a history of type 2 DM who presented to the ED with abdominal pain. 1. Choledocholithiasis - s/p ERCP with removal of 2 of 3 stones, stent placement - Repeat ERCP after Actigal x 3 mos vs lithotripsy at tertiary care center - Continue Zosyn - Plan for cholecystectomy 2. Type 2 DM - Metformin held - Continue Novolog sliding scale
--- NOTE | 2017-12-27 17:31 | PN ---
Physical Exam: SUBJECTIVE: Patient seen and examined at bedside. Pt feels well at this time. No complaints. Afebrile. Stable. OBJECTIVE: Vital Signs Period Temp Pulse Resp BP Sys/Russ Pulse Ox Last 24 Hr 97 F-99.2 F 63-88 14-20 125-141/68-86 98-100 GENERAL: The patient is awake, alert, and fully oriented, in no acute distress. HEAD: Normal with no signs of trauma. EYES: sclera anicteric, conjunctiva clear. No ptosis. ENT: oropharynx clear without exudates, moist mucous membranes. NECK: Trachea midline, full range of motion, supple. LUNGS: Breath sounds equal, clear to auscultation bilaterally, no wheezes, no crackles, no accessory muscle use. HEART: Regular rate and rhythm, S1, S2 without murmur, rub or gallop. ABDOMEN: Soft, mild tenderness, nondistended, normoactive bowel sounds, no guarding, no rebound, no hepatosplenomegaly, no masses. EXTREMITIES: 2+ pulses, warm, well-perfused, no edema. NEUROLOGICAL: Cranial nerves II through XII grossly intact. Normal speech, gait not observed. PSYCH: Normal mood, normal affect. SKIN: Warm, dry, normal turgor, no rashes or lesions noted Laboratory Results - last 24 hr 12/26/17 12/26/17 12/27/17 21:30 21:30 05:55 WBC RBC Hgb Hct MCV MCH MCHC RDW Plt Count MPV PT with INR 10.00 INR 0.88 PTT (Actin FS) 29.9 Sodium Potassium Chloride Carbon Dioxide Anion Gap BUN Creatinine Creat Clearance w eGFR POC Glucometer 154 Random Glucose Calcium Phosphorus Magnesium Total Bilirubin AST ALT Alkaline Phosphatase Total Protein Albumin Urine HCG, Qual Blood Type O POSITIVE Antibody Screen Negative 12/27/17 12/27/17 12/27/17 06:00 06:15 06:15 WBC 5.6 RBC 4.17 Hgb 11.1 Hct 33.9 MCV 81.2 MCH 26.7 MCHC 32.9 RDW 14.2 Plt Count 169 MPV 9.9 PT with INR 10.30 INR 0.91 PTT (Actin FS) Sodium Potassium Chloride Carbon Dioxide Anion Gap BUN Creatinine Creat Clearance w eGFR POC Glucometer Random Glucose Calcium Phosphorus Magnesium Total Bilirubin AST ALT Alkaline Phosphatase Total Protein Albumin Urine HCG, Qual Negative Blood Type Antibody Screen 12/27/17 12/27/17 06:15 06:15 WBC RBC Hgb Hct MCV MCH MCHC RDW Plt Count MPV PT with INR INR PTT (Actin FS) Sodium 139 Potassium 3.9 Chloride 108 H Carbon Dioxide 27 Anion Gap 4 L BUN 5 L Creatinine 0.6 Creat Clearance w eGFR > 60 POC Glucometer Random Glucose 158 H Calcium 8.0 L Phosphorus 3.0 Magnesium 2.4 Total Bilirubin 4.8 H D AST 111 H ALT 319 H Alkaline Phosphatase 349 H Total Protein 6.6 Albumin 3.2 L Urine HCG, Qual Blood Type O POSITIVE Antibody Screen Negative Active Medications Generic Name Dose Route Start Last Admin Trade Name Freq PRN Reason Stop Dose Admin Piperacillin Sod/Tazobactam 100 mls @ 200 mls/hr 12/27/17 10:15 12/27/17 14: 08 Sod 4.5 gm/ Dextrose IVPB 200 mls/hr Q8H-IV MAULIK Administration Protocol Lactated Ringer's 1,000 ml in 1,000 mls @ 250 mls/hr 12/27/17 13:15 12/27/17 14:09 Lactated Ringers Solution IV 12/27/17 19:15 250 mls/hr ASDIR MAULIK Administration Lactated Ringer's 1,000 ml in 1,000 mls @ 200 mls/hr 12/27/17 19:15 Lactated Ringers Solution IV 12/28/17 02:15 ASDIR MAULIK Lactated Ringer's 1,000 ml in 1,000 mls @ 175 mls/hr 12/28/17 02:15 Lactated Ringers Solution IV 12/28/17 08:15 ASDIR MAULIK Lactated Ringer's 1,000 ml in 1,000 mls @ 150 mls/hr 12/28/17 08:15 Lactated Ringers Solution IV 12/28/17 14:15 ASDIR MAULIK Insulin Aspart 1 vial 12/27/17 07:00 12/27/17 16:53 Novolog Vial Sliding Scale - SQ Not Given ACHS [facility] Protocol Morphine Sulfate 2 mg 12/26/17 22:14 Morphine Sulfate IVPUSH Q4H PRN PAIN LEVEL 6-10 Ondansetron HCl 4 mg 12/26/17 22:22 Zofran Injection IVPUSH Q6H PRN NAUSEA Pantoprazole Sodium 40 mg 12/27/17 10:00 12/27/17 10:27 Protonix - PO Not Given DAILY MAULIK ASSESSMENT/PLAN: Pt is a 32 y/o F with recently diagnosed DM and Hx cholelithiasis in 2012 who presented to ED with 10/10 abdominal pain. Pt was found to have transaminitis and choledocholithiasis with dilated CBD. Pt follows at [facility] clinic. #choledocholithiasis -Transaminitis on admission -Fatty liver on U/S -Pt went for ERCP today: 2 of 3 stones removed. Stent placed. -Pt seen by surgery. Plan for Cholecystectomy this hospital visit -Pt seen by ID. Continued with Zosyn perioperatively. #FEN -on LR at 150 -mild hyperchloremia -NPO #DVT ppx -HSQ Salinas Barclay MD PGY-1 IM Visit type - Emergency Visit Emergency Visit: No - New Patient This patient is new to me today: Yes Date on this admission: 12/28/17 - Critical Care Critical Care patient: No
[2017-12-27] MEDS: LACTATED RINGERS SOLUTION 1,000 ML/1,000 ML INFUS.BAG IV SCH (18:56)
[2017-12-27] MEDS ORDERED: HEPARIN NA (PORCINE) 5,000 UNITS/ML 1ML VIAL SQ SCH (22:00)
[2017-12-27] MEDS ORDERED: PT OWN MED DRAWER 7, Y5N ONE (22:05)
[2017-12-27] MEDS: URSODIOL 300 MG CAPSULE PO SCH (22:14)
[2017-12-28] MEDS: LACTATED RINGERS SOLUTION 1,000 ML/1,000 ML INFUS.BAG IV SCH (00:44)
[2017-12-28] MEDS ORDERED: PIPERACILLIN/TAZOBACTAM 4.5 GM VIAL IVPB ONE ×3 (01:05→16:57)
[2017-12-28] MEDS ORDERED: DEXTROSE 5%-WATER 100 ML IVPB ONE ×3 (01:07→16:57)
[2017-12-28] MEDS: PIPERACILLIN/TAZOB 4.5 GM 4.5 GM in DEXTROSE 5%-WATER 100 ML IVPB SCH ×3 (01:20→18:32)
[2017-12-28] MEDS ORDERED: LACTATED RINGERS SOLUTION 1,000 ML/1,000 ML INFUS.BAG IV SCH ×6 (02:15→21:30)
[2017-12-28] MEDS: INSULIN SLIDING SCALE (NOVOLOG) 1 VIAL SQ SCH ×3 (06:05→17:05)
[2017-12-28 07:41] LABS: BASO % 0.7 % (0-2.0); EOS % 1.8 % (0-4.5); HEMATOCRIT 32.6 % (32.4-45.2); HEMOGLOBIN 10.8 GM/dL (10.7-15.3); LYMPH % 30.4 % (8-40); MCH 26.9 pg (25.7-33.7); MCHC 33.2 g/dl (32.0-36.0); MONO % 8.3 % (3.8-10.2); NEUT % 58.8 % (42.8-82.8); PLATELET COUNT 154 K/MM3 (134-434); RBC 4.02 M/mm3 (3.60-5.2); WHITE BLOOD COUNT 3.7 K/mm3 (4.0-10.0)
[2017-12-28 08:04] LABS: CHLORIDE 107 mmol/L (98-107); SODIUM 140 mmol/L (136-145)
[2017-12-28 08:32] LABS: ALK PHOS 323 U/L (45-117); AMYLASE 296 U/L (25-115); ANION GAP 7 (8-16); BILIRUBIN,TOTAL 5.6 mg/dL (0.2-1.0); BLOOD UREA NITROGEN 4 mg/dL (7-18); CALCIUM 8.3 mg/dL (8.5-10.1); CO2 26 mmol/L (21-32); CREATININE 0.6 mg/dL (0.55-1.02); GLUCOSE,RANDOM 176 mg/dL (74-106); SGOT/AST 105 U/L (15-37); SGPT/ALT 299 U/L (12-78); TOT PROT 6.2 g/dl (6.4-8.2)
[2017-12-28 08:35] LABS: LIPASE 2811 U/L (73-393)
[2017-12-28] MEDS: PANTOPRAZOLE 40 MG TABLET (FP) PO SCH (09:25)
[2017-12-28] MEDS: URSODIOL 300 MG CAPSULE PO SCH ×2 (09:25→22:27)
--- NOTE | 2017-12-28 10:24 | PN ---
Progress Note, Physician Chief Complaint: abdominal pain History of Present Illness: 32 yo female PMH Diabetes,presented to the emergency department with 10/10, constant, epigastric pain with radiation to the back that started on Wednesday. Movement and eating aggravates the pain. Patient says she has not eaten much since Wednesday. She has been nauseas and vomited once on Wednesday with no memory of the description. Patient presented in 2012 for abdominal pain and was told to have a cholecystectomy but she said she was at the time. She also said she couldn't follow up after was because she lost her insurance. Patient denies chest pain, fevers, sob, dizziness, dysuria, diarrhea, blood in stool. We were asked to assess. - Current Medication List Current Medications: Active Medications Piperacillin Sod/Tazobactam (Sod 4.5 gm/ Dextrose) 100 mls @ 200 mls/hr IVPB Q8H-IV MAULIK PRN Reason: Protocol Last Admin: 12/28/17 09:24 Dose: 200 mls/hr Lactated Ringer's (Lactated Ringers Solution) 1,000 ml in 1,000 mls @ 150 mls/ hr IV ASDIR [facility] Stop: 12/28/17 14:15 Last Admin: 12/28/17 08:49 Dose: 150 mls/hr Insulin Aspart (Novolog Vial Sliding Scale -) 1 vial SQ ACHS MAULIK PRN Reason: Protocol Last Admin: 12/28/17 06:05 Dose: Not Given Morphine Sulfate (Morphine Sulfate) 2 mg IVPUSH Q4H PRN PRN Reason: PAIN LEVEL 6-10 Ondansetron HCl (Zofran Injection) 4 mg IVPUSH Q6H PRN PRN Reason: NAUSEA Pantoprazole Sodium (Protonix -) 40 mg PO DAILY [facility] Last Admin: 12/28/17 09:25 Dose: 40 mg Ursodiol (Actigal -) 300 mg PO BID [facility] Last Admin: 12/28/17 09:25 Dose: 300 mg - Objective Vital Signs: Vital Signs Temperature 97.9 F 12/28/17 06:00 Pulse Rate 73 12/28/17 06:00 Respiratory Rate 18 12/28/17 06:00 Blood Pressure 108/70 12/28/17 06:00 O2 Sat by Pulse Oximetry (%) 99 12/27/17 20:48 Vital Signs Period Temp Pulse Resp BP Sys/Russ Pulse Ox Last 24 Hr 97 F-98.0 F 63-73 14-20 102-133/56-73 98-99 Constitutional: Yes: Well Nourished, No Distress, Calm Eyes: Yes: Conjunctiva Clear, EOM Intact HENT: Yes: Atraumatic, Normocephalic Neck: Yes: Supple, Trachea Midline Cardiovascular: Yes: Regular Rate and Rhythm, S1, S2 Respiratory: Yes: Regular Gastrointestinal: Yes: Normal Bowel Sounds, Soft, Tenderness (RUQ, - murphys) ...Rectal Exam: Yes: Deferred Genitourinary: No: CVA Tenderness - Left, CVA Tenderness - Right Extremities: No: Cool, Cyanosis Edema: No Peripheral Pulses WNL: Yes Peripheral Pulses: Left Doralis Pedis: 2+, Right Dorsalis Pedis: 2+ Neurological: Yes: Alert, Oriented Psychiatric: Yes: Alert, Oriented Labs: CBC,CMP WBC 3.7 K/mm3 (4.0-10.0) L D 12/28/17 06:30 RBC 4.02 M/mm3 (3.60-5.2) 12/28/17 06:30 Hgb 10.8 GM/dL (10.7-15.3) 12/28/17 06:30 Hct 32.6 % (32.4-45.2) 12/28/17 06:30 MCV 81.0 fl (80-96) 12/28/17 06:30 MCH 26.9 pg (25.7-33.7) 12/28/17 06:30 MCHC 33.2 g/dl (32.0-36.0) 12/28/17 06:30 RDW 14.0 % (11.6-15.6) 12/28/17 06:30 Plt Count 154 K/MM3 (134-434) 12/28/17 06:30 MPV 10.0 fl (7.5-11.1) 12/28/17 06:30 Neutrophils % 58.8 % (42.8-82.8) 12/28/17 06:30 Lymphocytes % 30.4 % (8-40) D 12/28/17 06:30 Monocytes % 8.3 % (3.8-10.2) 12/28/17 06:30 Eosinophils % 1.8 % (0-4.5) D 12/28/17 06:30 Basophils % 0.7 % (0-2.0) 12/28/17 06:30 Sodium 140 mmol/L (136-145) 12/28/17 06:30 Potassium 4.0 mmol/L (3.5-5.1) 12/28/17 06:30 Chloride 107 mmol/L (98-107) 12/28/17 06:30 Carbon Dioxide 26 mmol/L (21-32) 12/28/17 06:30 Anion Gap 7 (8-16) L 12/28/17 06:30 BUN 4 mg/dL (7-18) L 12/28/17 06:30 Creatinine 0.6 mg/dL (0.55-1.02) 12/28/17 06:30 Creat Clearance w eGFR > 60 (>60) 12/28/17 06:30 POC Glucometer 153 UNITS (80-120) 12/28/17 05:27 Random Glucose 176 mg/dL (74-106) H 12/28/17 06:30 Calcium 8.3 mg/dL (8.5-10.1) L 12/28/17 06:30 Phosphorus 3.0 mg/dL (2.5-4.9) 12/27/17 06:15 Magnesium 2.4 mg/dL (1.8-2.4) 12/27/17 06:15 Total Bilirubin 5.6 mg/dL (0.2-1.0) H 12/28/17 06:30 AST 105 U/L (15-37) H 12/28/17 06:30 ALT 299 U/L (12-78) H 12/28/17 06:30 Alkaline Phosphatase 323 U/L (45-117) H 12/28/17 06:30 Creatine Kinase 94 IU/L (26-192) 12/26/17 16:38 Troponin I < 0.02 ng/ml (0.00-0.05) 12/26/17 16:38 C-Reactive Protein 1.4 MG/DL (0.00-0.3) H 12/28/17 06:30 Total Protein 6.2 g/dl (6.4-8.2) L 12/28/17 06:30 Albumin 3.0 g/dl (3.4-5.0) L 12/28/17 06:30 Total Amylase 296 U/L (25-115) H 12/28/17 06:30 Lipase 2811 U/L (73-393) H 12/28/17 06:30 Problem List - Problems (1) Calculus common bile duct with chronic cholecystitis with obstruction Assessment/Plan: 32 yo female with acute on chronic choledocholithiais, gallbladder wall thickening, CBD 1.25cm, tbili 3.9 -->5.6, epigastric pain and tenderness, no leukocystosis or fever noted. NPo and IVF hydration empiric IV antibiotics GI eval for ERCP Trend labs Will post pone surgery until repeated ERCP Code(s): K80.41 - CALCULUS OF BILE DUCT W CHOLECYSTITIS, UNSP, W OBSTRUCTION (2) Choledocholithiasis Code(s): K80.50 - CALCULUS OF BILE DUCT W/O CHOLANGITIS OR CHOLECYST W/O OBST (3) Transaminitis Code(s): R74.0 - NONSPEC ELEV OF LEVELS OF TRANSAMNS & LACTIC ACID DEHYDRGNSE (4) Gastroesophageal reflux during in second trimester, antepartum Code(s): O99.612 - DISEASES OF THE DGSTV SYS COMP , SECOND TRIMESTER; K21.9 - GASTRO-ESOPHAGEAL REFLUX DISEASE WITHOUT ESOPHAGITIS (5) Diabetes Code(s): E11.9 - TYPE 2 DIABETES MELLITUS WITHOUT COMPLICATIONS
--- NOTE | 2017-12-28 11:26 | PN ---
GI Progress Note Subjective: No acute events S/P ERCP 12/27/17 with sphincterotomy, stone extraction and stent placement as one stone could not be removed Bilirubin higher on AM labs Patient denies abdominal pain - Objective Vital Signs: Vital Signs Temperature 98.3 F 12/28/17 10:00 Pulse Rate 66 12/28/17 10:00 Respiratory Rate 18 12/28/17 10:00 Blood Pressure 112/70 12/28/17 10:00 O2 Sat by Pulse Oximetry (%) 99 12/27/17 20:48 Constitutional: Calm Eyes: Yes: Sclera Icterus Cardiovascular: Yes: Regular Rate and Rhythm Respiratory: Yes: CTA Bilaterally Gastrointestinal Inspection: No: Distention ...Auscultate: Yes: Normoactive Bowel Sounds ...Palpate: Yes: Tenderness (Mild TTP epigastrium). No: Guarding, Tenderness, Rebound ...Percussion: No: Tympanitic Edema: No (No LE edema) Neurological: Yes: Alert Labs: CBC, BMP 12/28/17 06:30 12/28/17 06:30 INR, PTT INR 0.91 (0.82-1.09) 12/27/17 06:15 Hepatic Panel Total Bilirubin 5.6 mg/dL (0.2-1.0) H 12/28/17 06:30 Direct Bilirubin Cancelled 12/28/17 07:00 AST 105 U/L (15-37) H 12/28/17 06:30 ALT 299 U/L (12-78) H 12/28/17 06:30 Alkaline Phosphatase 323 U/L (45-117) H 12/28/17 06:30 Albumin 3.0 g/dl (3.4-5.0) L 12/28/17 06:30 Problem List - Problems (1) Choledocholithiasis with obstruction Assessment/Plan: Symptomatic choledocholithiasis: Spoke w/ Dr. Rogers this morning. Plan is for repeat ERCP today given rising bilirubin to evaluate stent placement and attempt at residual stone extraction. Ms. Bhagat is aware of the plan. Patient is S/P sphincterotomy, use alternate form of DVT prophylaxis aside from anticoagulation. Continue IV Abx, NPO, IV hydration w/ lactated ringers Code(s): K80.51 - CALCULUS OF BILE DUCT W/O CHOLANGITIS OR CHOLECYST W OBST
[2017-12-28 13:51] LABS: BILIRUBIN,DIRECT 4.7 mg/dL (0.0-0.2)
[2017-12-28] MEDS ORDERED: PROPOFOL 20 ML ONE ×3 (14:04)
[2017-12-28] MEDS ORDERED: EPINEPHrine 1:10,000 (P-F SYR) 1 MG/10 ML DISP.SYRIN SQ ONE (15:07)
[2017-12-28] MEDS ORDERED: EPINEPHrine 1:10,000 (P-F SYR) 1 MG/10 ML DISP.SYRIN ONE (15:17)
--- NOTE | 2017-12-28 15:20 | PN ---
Progress Note (short form) - Note Progress Note: GI Procedure NOte: Please see ERCP report. The previous stent was draiing no bile. After it was extracted pus was flowing form the bile duct. Despite extensing her sphincterotomy the residual two stones ( appeared as one yesterday ) still could not be extracted and attempts had to be abandoned when bleeding developed at the sphincterotomy site. This was controlled by placing a new 7FR and 5cm double pigtail stent and 3 x 1cc epinephrine injections.
--- NOTE | 2017-12-28 16:29 | PN ---
Teaching Attending Note Name of Resident: Salinas Barclay ATTENDING PHYSICIAN STATEMENT I saw and evaluated the patient. I reviewed the resident's note and discussed the case with the resident. I agree with the resident's findings and plan as documented with exceptions below. SUBJECTIVE: patient seen and examined. no nausea, vomiting or abdominal pain or fevers/ chills. OBJECTIVE: Vital Signs Period Temp Pulse Resp BP Sys/Russ Pulse Ox Last 24 Hr 97.3 F-98.3 F 60-80 14-20 83-136/46-70 97-99 Intake & Output 12/25/17 12/26/17 12/27/17 12/28/17 23:59 23:59 23:59 23:59 Intake Total 1250 4537 2100 Output Total 1050 Balance 1250 3487 2100 Weight 130 lb General: sitting in bed in no acute distress Abdomen: soft, ND, positive epigastric tenderness, neg Parra's sign, neg RUQ tenderness, positive bowel sounds Home Medication List Medication Instructions Recorded Confirmed Type Metformin HCl 500 mg PO DAILY 12/26/17 12/26/17 History Active Medications Generic Name Dose Route Start Last Admin Trade Name Freq PRN Reason Stop Dose Admin Piperacillin Sod/Tazobactam 100 mls @ 200 mls/hr 12/27/17 10:15 12/28/17 09: 24 Sod 4.5 gm/ Dextrose IVPB 200 mls/hr Q8H-IV MAULIK Administration Protocol Lactated Ringer's 1,000 ml in 1,000 mls @ 250 mls/hr 12/28/17 15:32 12/28/17 17:04 Lactated Ringers Solution IV 12/28/17 21:30 250 mls/hr ASDIR MAULIK Administration Insulin Aspart 1 vial 12/28/17 18:00 12/28/17 17:05 Novolog Vial Sliding Scale - SQ Not Given Q6HPO MAULIK Protocol Morphine Sulfate 2 mg 12/26/17 22:14 Morphine Sulfate IVPUSH Q4H PRN PAIN LEVEL 6-10 Ondansetron HCl 4 mg 12/26/17 22:22 12/28/17 16:59 Zofran Injection IVPUSH 4 mg Q6H PRN Administration NAUSEA Pantoprazole Sodium 40 mg 12/27/17 10:00 12/28/17 09:25 Protonix - PO 40 mg DAILY MAULIK Administration Ursodiol 300 mg 12/27/17 22:00 12/28/17 09:25 Actigal - PO 300 mg BID MAULIK Administration Laboratory Results - last 24 hr 12/27/17 12/28/17 12/28/17 21:16 00:42 05:27 WBC RBC Hgb Hct MCV MCH MCHC RDW Plt Count MPV Neutrophils % Lymphocytes % Monocytes % Eosinophils % Basophils % Sodium Potassium Chloride Carbon Dioxide Anion Gap BUN Creatinine Creat Clearance w eGFR POC Glucometer 175 165 153 Random Glucose Calcium Total Bilirubin Direct Bilirubin AST ALT Alkaline Phosphatase C-Reactive Protein Total Protein Albumin Total Amylase Lipase HIV 1&2 Antibody Screen HIV P24 Antigen 12/28/17 12/28/17 12/28/17 06:30 06:30 06:30 WBC 3.7 L D RBC 4.02 Hgb 10.8 Hct 32.6 MCV 81.0 MCH 26.9 MCHC 33.2 RDW 14.0 Plt Count 154 MPV 10.0 Neutrophils % 58.8 Lymphocytes % 30.4 D Monocytes % 8.3 Eosinophils % 1.8 D Basophils % 0.7 Sodium 140 Potassium 4.0 Chloride 107 Carbon Dioxide 26 Anion Gap 7 L BUN 4 L Creatinine 0.6 Creat Clearance w eGFR > 60 POC Glucometer Random Glucose 176 H Calcium 8.3 L Total Bilirubin 5.6 H Direct Bilirubin 4.7 H AST 105 H ALT 299 H Alkaline Phosphatase 323 H C-Reactive Protein 1.4 H Total Protein 6.2 L Albumin 3.0 L Total Amylase 296 H Lipase 2811 H HIV 1&2 Antibody Screen Negative HIV P24 Antigen Negative 12/28/17 12/28/17 12/28/17 07:00 11:10 16:37 WBC RBC Hgb Hct MCV MCH MCHC RDW Plt Count MPV Neutrophils % Lymphocytes % Monocytes % Eosinophils % Basophils % Sodium Potassium Chloride Carbon Dioxide Anion Gap BUN Creatinine Creat Clearance w eGFR POC Glucometer 155 137 Random Glucose Calcium Total Bilirubin Direct Bilirubin Cancelled AST ALT Alkaline Phosphatase C-Reactive Protein Total Protein Albumin Total Amylase Lipase HIV 1&2 Antibody Screen HIV P24 Antigen Microbiology 12/27/17 11:30 Urine - Urine Clean Catch Urine Culture - Final NO GROWTH OBTAINED 12/27/17 08:45 Blood - Peripheral Venous Blood Culture - Preliminary NO GROWTH OBTAINED AFTER 24 HOURS, INCUBATION TO CONTINUE FOR 4 DAYS. 12/27/17 07:55 Blood - Peripheral Venous Blood Culture - Preliminary NO GROWTH OBTAINED AFTER 24 HOURS, INCUBATION TO CONTINUE FOR 4 DAYS. ASSESSMENT AND PLAN: 32 yof with choledocholithiasis with obstructive jaundice, acute cholangitis and now with gall stone/Post ERCP pancreatitis. -Choledocholithiasis with worsening obstructive jaundice s/p repeat ERCP with clogged stent removal with pus drainage, and failed repeat attempt at stone extraction with sphincterotomy -Acute cholangitis -Likely secondary gall stone/Post ERCP pancreatitis from clogged biliary stent Plan: ERCP results noted. NPO, hold anti-coagulation, IVF. Pain control. Close monitoring of hemodynamics and liver function. GI input appreciated. Discussed with Dr. Starks, will be discussing with biliary surgeon at [facility] to possible transfer for CCY with intra-op cholangiogram with stone extraction in 24 hours based on clinical course. Continue Zosyn. GIPPx with Protonix DVTPPx with SCds dispo likely transfer to [facility] in 24 hours pending above. Plan discussed with patient and all questions answered.
--- NOTE | 2017-12-28 19:46 | PN ---
Physical Exam: SUBJECTIVE: Patient seen and examined at bedside. Pt feels well at this time. No complaints. Afebrile. Stable. Pt went for repeat ERCP today. Stones unable to be extracted. OBJECTIVE: Vital Signs Period Temp Pulse Resp BP Sys/Russ Pulse Ox Last 24 Hr 97.3 F-98.3 F 60-97 14-20 83-142/46-82 97-99 GENERAL: The patient is awake, alert, and fully oriented, in no acute distress. HEAD: Normal with no signs of trauma. EYES: sclera anicteric, conjunctiva clear. No ptosis. ENT: oropharynx clear without exudates, moist mucous membranes. NECK: Trachea midline, full range of motion, supple. LUNGS: Breath sounds equal, clear to auscultation bilaterally, no wheezes, no crackles, no accessory muscle use. HEART: Regular rate and rhythm, S1, S2 without murmur, rub or gallop. ABDOMEN: Soft, epigastric tenderness, nondistended, normoactive bowel sounds, no guarding, no rebound, no hepatosplenomegaly, no masses. EXTREMITIES: 2+ pulses, warm, well-perfused, no edema. NEUROLOGICAL: Cranial nerves II through XII grossly intact. Normal speech, gait not observed. PSYCH: Normal mood, normal affect. SKIN: Warm, dry, normal turgor, no rashes or lesions noted Laboratory Results - last 24 hr 12/27/17 12/28/17 12/28/17 21:16 00:42 05:27 WBC RBC Hgb Hct MCV MCH MCHC RDW Plt Count MPV Neutrophils % Lymphocytes % Monocytes % Eosinophils % Basophils % Sodium Potassium Chloride Carbon Dioxide Anion Gap BUN Creatinine Creat Clearance w eGFR POC Glucometer 175 165 153 Random Glucose Calcium Total Bilirubin Direct Bilirubin AST ALT Alkaline Phosphatase C-Reactive Protein Total Protein Albumin Total Amylase Lipase HIV 1&2 Antibody Screen HIV P24 Antigen 12/28/17 12/28/17 12/28/17 06:30 06:30 06:30 WBC 3.7 L D RBC 4.02 Hgb 10.8 Hct 32.6 MCV 81.0 MCH 26.9 MCHC 33.2 RDW 14.0 Plt Count 154 MPV 10.0 Neutrophils % 58.8 Lymphocytes % 30.4 D Monocytes % 8.3 Eosinophils % 1.8 D Basophils % 0.7 Sodium 140 Potassium 4.0 Chloride 107 Carbon Dioxide 26 Anion Gap 7 L BUN 4 L Creatinine 0.6 Creat Clearance w eGFR > 60 POC Glucometer Random Glucose 176 H Calcium 8.3 L Total Bilirubin 5.6 H Direct Bilirubin 4.7 H AST 105 H ALT 299 H Alkaline Phosphatase 323 H C-Reactive Protein 1.4 H Total Protein 6.2 L Albumin 3.0 L Total Amylase 296 H Lipase 2811 H HIV 1&2 Antibody Screen Negative HIV P24 Antigen Negative 12/28/17 12/28/17 12/28/17 07:00 11:10 16:37 WBC RBC Hgb Hct MCV MCH MCHC RDW Plt Count MPV Neutrophils % Lymphocytes % Monocytes % Eosinophils % Basophils % Sodium Potassium Chloride Carbon Dioxide Anion Gap BUN Creatinine Creat Clearance w eGFR POC Glucometer 155 137 Random Glucose Calcium Total Bilirubin Direct Bilirubin Cancelled AST ALT Alkaline Phosphatase C-Reactive Protein Total Protein Albumin Total Amylase Lipase HIV 1&2 Antibody Screen HIV P24 Antigen Active Medications Generic Name Dose Route Start Last Admin Trade Name Freq PRN Reason Stop Dose Admin Piperacillin Sod/Tazobactam 100 mls @ 200 mls/hr 12/27/17 10:15 12/28/17 18: 32 Sod 4.5 gm/ Dextrose IVPB 200 mls/hr Q8H-IV MAULIK Administration Protocol Lactated Ringer's 1,000 ml in 1,000 mls @ 250 mls/hr 12/28/17 15:32 12/28/17 17:04 Lactated Ringers Solution IV 12/28/17 21:30 250 mls/hr ASDIR MAULIK Administration Lactated Ringer's 1,000 ml in 1,000 mls @ 200 mls/hr 12/28/17 21:30 Lactated Ringers Solution IV 12/29/17 03:30 ASDIR MAULIK Lactated Ringer's 1,000 ml in 1,000 mls @ 175 mls/hr 12/29/17 03:30 Lactated Ringers Solution IV 12/29/17 09:30 ASDIR MAULIK Lactated Ringer's 1,000 ml in 1,000 mls @ 150 mls/hr 12/29/17 09:30 Lactated Ringers Solution IV ASDIR MAULIK Insulin Aspart 1 vial 12/28/17 18:00 12/28/17 17:05 Novolog Vial Sliding Scale - SQ Not Given Q6HPO MAULIK Protocol Morphine Sulfate 2 mg 12/26/17 22:14 Morphine Sulfate IVPUSH Q4H PRN PAIN LEVEL 6-10 Ondansetron HCl 4 mg 12/26/17 22:22 12/28/17 16:59 Zofran Injection IVPUSH 4 mg Q6H PRN Administration NAUSEA Pantoprazole Sodium 40 mg 12/27/17 10:00 12/28/17 09:25 Protonix - PO 40 mg DAILY MAULIK Administration Ursodiol 300 mg 12/27/17 22:00 12/28/17 09:25 Actigal - PO 300 mg BID MAULIK Administration ASSESSMENT/PLAN: Pt is a 32 y/o F with recently diagnosed DM and Hx cholelithiasis in 2012 who presented to ED with 10/10 abdominal pain. Pt was found to have transaminitis and choledocholithiasis with dilated CBD. Pt follows at [facility] clinic. #choledocholithiasis -Transaminitis on admission -Fatty liver on U/S -Pt went for repeat ERCP today: 2 remained. Stent was removed and pus flowed out , so double pigtail stent was placed. Procedure stopped due to bleeding from sphincterotomy site. -Pt seen by surgery. Plan for Cholecystectomy this hospital visit -Pt seen by ID. Continued with Zosyn perioperatively. #FEN -on LR at 150 -mild hyperchloremia -NPO #DVT ppx -HSQ Salinas Barclay MD PGY-1 IM Visit type - Emergency Visit Emergency Visit: No - New Patient This patient is new to me today: No - Critical Care Critical Care patient: No
--- NOTE | 2017-12-28 20:18 | PN ---
Progress Note (short form) - Note Progress Note: GI NOte: Using [employer] interpreter translator # [id number] I explained Leslie's bile duct situation to her including the bleeding that arose when I tried to extract her stones through the extended sphincterotomy. I explained that she is at risk of recurrent bleeding and still in need of another ERCP to extract her stone and stent and for a cholecystectomy. I explained that failure to remove the stent before 6 months pass could lead to stricturing of the bile duct and I gave her my business card. She has only minimal pain in the RUQ and has not had any bloody bowel movements.
[2017-12-28 21:16] LABS: BASO % 0.4 % (0-2.0); EOS % 0.4 % (0-4.5); HEMATOCRIT 32.9 % (32.4-45.2); LYMPH % 16.9 % (8-40); MCHC 33.4 g/dl (32.0-36.0); MEAN PLT VOLUME 10.2 fl (7.5-11.1); MONO % 4.1 % (3.8-10.2); NEUT % 78.2 % (42.8-82.8); PLATELET COUNT 188 K/MM3 (134-434); RBC 4.06 M/mm3 (3.60-5.2); WHITE BLOOD COUNT 6.7 K/mm3 (4.0-10.0)
[2017-12-28] MEDS ORDERED: PT OWN MED DRAWER 7, Y5N ONE (22:06)
[2017-12-28] MEDS: morphine SULFATE 4 MG/ML VIAL IVPUSH PRN (22:22)
[2017-12-29] MEDS ORDERED: PT OWN MED DRAWER 7, Y5N ONE (00:08)
[2017-12-29] MEDS ORDERED: PIPERACILLIN/TAZOBACTAM 4.5 GM VIAL IVPB ONE ×3 (01:59→16:49)
[2017-12-29] MEDS ORDERED: DEXTROSE 5%-WATER 100 ML IVPB ONE ×3 (01:59→16:49)
[2017-12-29] MEDS: PIPERACILLIN/TAZOB 4.5 GM 4.5 GM in DEXTROSE 5%-WATER 100 ML IVPB SCH ×3 (02:06→17:02)
[2017-12-29] MEDS: morphine SULFATE 4 MG/ML VIAL IVPUSH PRN (02:06)
[2017-12-29] MEDS: INSULIN SLIDING SCALE (NOVOLOG) 1 VIAL SQ SCH ×4 (02:12→17:05)
[2017-12-29] MEDS ORDERED: LACTATED RINGERS SOLUTION 1,000 ML/1,000 ML INFUS.BAG IV SCH (03:30)
[2017-12-29 09:01] LABS: BASO % 0.4 % (0-2.0); EOS % 2.3 % (0-4.5); HEMOGLOBIN 11.1 GM/dL (10.7-15.3); LYMPH % 26.5 % (8-40); MCH 27.1 pg (25.7-33.7); MCHC 33.7 g/dl (32.0-36.0); MEAN CELL VOLUME 80.4 fl (80-96); MEAN PLT VOLUME 10.3 fl (7.5-11.1); MONO % 7.3 % (3.8-10.2); NEUT % 63.5 % (42.8-82.8); PLATELET COUNT 176 K/MM3 (134-434); RDW 13.9 % (11.6-15.6); WHITE BLOOD COUNT 4.9 K/mm3 (4.0-10.0)
[2017-12-29 09:04] LABS: INR 0.9 (0.82-1.09); PROTHROMBIN TIME (PATIENT) 10.2 SEC (9.7-13.0)
[2017-12-29 10:06] LABS: CHLORIDE 105 mmol/L (98-107); POTASSIUM 3.6 mmol/L (3.5-5.1); SODIUM 139 mmol/L (136-145)
--- NOTE | 2017-12-29 10:06 | PN ---
Progress Note, Physician Chief Complaint: abdominal pain History of Present Illness: 32 yo female PMH Diabetes,presented to the emergency department with 10, constant, epigastric pain with radiation to the back that started on Wednesday. Movement and eating aggravates the pain. stable after repeat ERCP, no complaints - Current Medication List Current Medications: Active Medications Piperacillin Sod/Tazobactam (Sod 4.5 gm/ Dextrose) 100 mls @ 200 mls/hr IVPB Q8H-IV MAULIK PRN Reason: Protocol Last Admin: 12/29/17 09:39 Dose: 200 mls/hr Lactated Ringer's (Lactated Ringers Solution) 1,000 ml in 1,000 mls @ 150 mls/ hr IV ASDIR MAULIK Insulin Aspart (Novolog Vial Sliding Scale -) 1 vial SQ Q6HPO MAULIK PRN Reason: Protocol Last Admin: 12/29/17 07:29 Dose: Not Given Morphine Sulfate (Morphine Sulfate) 2 mg IVPUSH Q4H PRN PRN Reason: PAIN LEVEL 6-10 Last Admin: 12/29/17 02:06 Dose: 2 mg Ondansetron HCl (Zofran Injection) 4 mg IVPUSH Q6H PRN PRN Reason: NAUSEA Last Admin: 12/28/17 16:59 Dose: 4 mg Pantoprazole Sodium (Protonix -) 40 mg PO DAILY [facility] Last Admin: 12/28/17 09:25 Dose: 40 mg Ursodiol (Actigal -) 300 mg PO BID [facility] Last Admin: 12/28/17 22:27 Dose: Not Given - Objective Vital Signs: Vital Signs Temperature 97.8 F 12/29/17 08:58 Pulse Rate 66 12/29/17 08:58 Respiratory Rate 20 12/29/17 08:58 Blood Pressure 115/75 12/29/17 08:58 O2 Sat by Pulse Oximetry (%) 99 12/28/17 21:00 Vital Signs Period Temp Pulse Resp BP Sys/Russ Pulse Ox Last 24 Hr 97.8 F-98.3 F 60-97 14-20 83-142/46-82 97-99 Constitutional: Yes: Well Nourished, No Distress, Calm, Other Eyes: Yes: Conjunctiva Clear HENT: Yes: Atraumatic, Normocephalic Neck: Yes: Supple, Trachea Midline Cardiovascular: Yes: Regular Rate and Rhythm, S1, S2 Respiratory: Yes: Regular, CTA Bilaterally Gastrointestinal: Yes: Normal Bowel Sounds, Soft, Tenderness (minmal RUQ and mid epigastic tenderness), Tenderness, Epigastrium ...Rectal Exam: Yes: Deferred Genitourinary: No: CVA Tenderness - Left, CVA Tenderness - Right Extremities: No: Cool, Cyanosis Edema: No Peripheral Pulses WNL: Yes Peripheral Pulses: Left Doralis Pedis: 2+, Right Dorsalis Pedis: 2+ Neurological: Yes: Alert, Oriented Psychiatric: Yes: Alert, Oriented Labs: Problem List - Problems (1) Calculus common bile duct with chronic cholecystitis with obstruction Assessment/Plan: 32 yo female with acute on chronic choledocholithiais, gallbladder wall thickening, CBD 1.25cm, tbili 3.9 -->5.6, epigastric pain and tenderness, no leukocystosis or fever noted. NPo and IVF hydration empiric IV antibiotics GI eval for ERCP Trend labs Will post pone surgery until repeated ERCP Code(s): K80.41 - CALCULUS OF BILE DUCT W CHOLECYSTITIS, UNSP, W OBSTRUCTION (2) Choledocholithiasis Code(s): K80.50 - CALCULUS OF BILE DUCT W/O CHOLANGITIS OR CHOLECYST W/O OBST (3) Transaminitis Code(s): R74.0 - NONSPEC ELEV OF LEVELS OF TRANSAMNS & LACTIC ACID DEHYDRGNSE (4) Gastroesophageal reflux during in second trimester, antepartum Code(s): O99.612 - DISEASES OF THE DGSTV SYS COMP , SECOND TRIMESTER; K21.9 - GASTRO-ESOPHAGEAL REFLUX DISEASE WITHOUT ESOPHAGITIS (5) Diabetes Code(s): E11.9 - TYPE 2 DIABETES MELLITUS WITHOUT COMPLICATIONS
[2017-12-29 10:28] LABS: ALK PHOS 332 U/L (45-117); AMYLASE 175 U/L (25-115); ANION GAP 11 (8-16); BILIRUBIN,TOTAL 4.3 mg/dL (0.2-1.0); BLOOD UREA NITROGEN 5 mg/dL (7-18); CALCIUM 8.4 mg/dL (8.5-10.1); CO2 23 mmol/L (21-32); CREATININE 0.5 mg/dL (0.55-1.02); GLUCOSE,RANDOM 113 mg/dL (74-106); SGOT/AST 97 U/L (15-37); SGPT/ALT 274 U/L (12-78); TOT PROT 6.6 g/dl (6.4-8.2)
[2017-12-29 10:35] LABS: LIPASE 639 U/L (73-393)
[2017-12-29] MEDS: LACTATED RINGERS SOLUTION 1,000 ML/1,000 ML INFUS.BAG IV SCH ×2 (10:45→17:04)
[2017-12-29] MEDS: URSODIOL 300 MG CAPSULE PO SCH (11:52)
[2017-12-29] MEDS: PANTOPRAZOLE 40 MG TABLET (FP) PO SCH ×2 (11:53→14:17)
--- NOTE | 2017-12-29 13:13 | EKG ---
Test Reason : Blood Pressure : / mmHG Vent. Rate : 089 BPM Atrial Rate : 089 BPM P-R Int : 174 ms QRS Dur : 074 ms QT Int : 348 ms P-R-T Axes : 059 047 069 degrees QTc Int : 423 ms NORMAL SINUS RHYTHM ANTERIOR INFARCT , AGE UNDETERMINED ABNORMAL ECG WHEN COMPARED WITH ECG OF 26-DEC-2017 16:47, NO SIGNIFICANT CHANGE WAS FOUND Confirmed by CHELSIE TREADWELL MD ([id number]) on 12/29/2017 1:13:15 PM Referred By: Confirmed By:CHELSIE TREADWLEL MD
--- NOTE | 2017-12-29 13:17 | PN ---
GI Progress Note Subjective: GI NOte: Fortunately no overt GI bleeding and Hb is stable. Bilirubin has decerased with new stent. Resident staff will attempt transfer to facility that has ultrasonic lithotripsy. If no one takes her than I have informed her via residency program coordinator will repeat . Leslie is now pain free and hungry - Objective Vital Signs: Vital Signs Temperature 97.8 F 12/29/17 08:58 Pulse Rate 66 12/29/17 08:58 Respiratory Rate 20 12/29/17 08:58 Blood Pressure 115/75 12/29/17 08:58 O2 Sat by Pulse Oximetry (%) 99 12/28/17 21:00 Laboratory Tests 12/29/17 12/29/17 07:43 07:43 WBC 4.9 Hgb 11.1 Total Bilirubin 4.3 H D AST 97 H ALT 274 H Alkaline Phosphatase 332 H Total Amylase 175 H Constitutional: Anxious Eyes: Yes: Sclera Icterus ...Auscultate: Yes: Normoactive Bowel Sounds ...Palpate: Yes: Soft, Other (nontender) Labs: CBC, BMP 12/29/17 07:43 12/29/17 07:43 INR, PTT INR 0.90 (0.82-1.09) 12/29/17 07:43 Problem List - Problems (1) Choledocholithiasis with obstruction Assessment/Plan: Will start clear liquids. Hoping for transfer to tertiary [facility] but if not forthcoming will reattempt stone extraction Wednesday. Discussed case with Dr Snow and with clinical intensive care nurse. Code(s): K80.51 - CALCULUS OF BILE DUCT W/O CHOLANGITIS OR CHOLECYST W OBST
--- NOTE | 2017-12-29 14:40 | PN ---
Teaching Attending Note Name of Resident: Salinas Barclay ATTENDING PHYSICIAN STATEMENT I saw and evaluated the patient. I reviewed the resident's note and discussed the case with the resident. I agree with the resident's findings and plan as documented with exceptions below. SUBJECTIVE: Patient seen and examined. no nausea, vomiting, abdominal pain or diarrhea. Denies any fevers/chills. Wants to eat. OBJECTIVE: Vital Signs Period Temp Pulse Resp BP Sys/Russ Pulse Ox Last 24 Hr 97.8 F-98.3 F 60-97 14-20 83-142/46-82 97-100 Intake & Output 12/26/17 12/27/17 12/28/17 12/29/17 23:59 23:59 23:59 23:59 Intake Total 1250 4537 3545 2425 Output Total 1050 Balance 1250 3487 3545 2425 Weight 130 lb General: lying in bed in no acute distress Abdomen: soft, no tenderness in epigastrium or RUQ on deep palpitation, ND, no voluntary or involuntary Home Medication List Medication Instructions Recorded Confirmed Type Metformin HCl 500 mg PO DAILY 12/26/17 12/26/17 History Active Medications Generic Name Dose Route Start Last Admin Trade Name Freq PRN Reason Stop Dose Admin Piperacillin Sod/Tazobactam 100 mls @ 200 mls/hr 12/27/17 10:15 12/29/17 09: 39 Sod 4.5 gm/ Dextrose IVPB 200 mls/hr Q8H-IV MAULIK Administration Protocol Lactated Ringer's 1,000 ml in 1,000 mls @ 150 mls/hr 12/29/17 09:30 12/29/17 10:45 Lactated Ringers Solution IV 150 mls/hr ASDIR MAULIK Administration Insulin Aspart 1 vial 12/28/17 18:00 12/29/17 11:51 Novolog Vial Sliding Scale - SQ Not Given Q6HPO MAULIK Protocol Morphine Sulfate 2 mg 12/26/17 22:14 12/29/17 02:06 Morphine Sulfate IVPUSH 2 mg Q4H PRN Administration PAIN LEVEL 6-10 Ondansetron HCl 4 mg 12/26/17 22:22 12/28/17 16:59 Zofran Injection IVPUSH 4 mg Q6H PRN Administration NAUSEA Pantoprazole Sodium 40 mg 12/27/17 10:00 12/29/17 14:17 Protonix - PO 40 mg DAILY MAULIK Administration Ursodiol 300 mg 12/27/17 22:00 12/29/17 11:52 Actigal - PO Not Given BID [facility] Laboratory Results - last 24 hr 12/28/17 12/28/17 12/28/17 06:30 16:37 21:00 WBC 6.7 D RBC 4.06 Hgb 11.0 Hct 32.9 MCV 81.0 MCH 27.0 MCHC 33.4 RDW 14.0 Plt Count 188 D MPV 10.2 Neutrophils % 78.2 D Lymphocytes % 16.9 D Monocytes % 4.1 Eosinophils % 0.4 Basophils % 0.4 PT with INR INR Sodium Potassium Chloride Carbon Dioxide Anion Gap BUN Creatinine Creat Clearance w eGFR POC Glucometer 137 Random Glucose Calcium Total Bilirubin AST ALT Alkaline Phosphatase Total Protein Albumin Total Amylase Lipase HIV 1&2 Antibody Screen Negative HIV P24 Antigen Negative Blood Type Antibody Screen 12/28/17 12/29/17 12/29/17 21:00 02:09 06:02 WBC RBC Hgb Hct MCV MCH MCHC RDW Plt Count MPV Neutrophils % Lymphocytes % Monocytes % Eosinophils % Basophils % PT with INR INR Sodium Potassium Chloride Carbon Dioxide Anion Gap BUN Creatinine Creat Clearance w eGFR POC Glucometer 107 112 Random Glucose Calcium Total Bilirubin AST ALT Alkaline Phosphatase Total Protein Albumin Total Amylase Lipase HIV 1&2 Antibody Screen HIV P24 Antigen Blood Type O POSITIVE Antibody Screen Negative 12/29/17 12/29/17 12/29/17 07:43 07:43 07:43 WBC 4.9 RBC 4.10 Hgb 11.1 Hct 33.0 MCV 80.4 MCH 27.1 MCHC 33.7 RDW 13.9 Plt Count 176 MPV 10.3 Neutrophils % 63.5 Lymphocytes % 26.5 D Monocytes % 7.3 Eosinophils % 2.3 D Basophils % 0.4 PT with INR 10.20 INR 0.90 Sodium 139 Potassium 3.6 Chloride 105 Carbon Dioxide 23 Anion Gap 11 BUN 5 L Creatinine 0.5 L Creat Clearance w eGFR > 60 POC Glucometer Random Glucose 113 H Calcium 8.4 L Total Bilirubin 4.3 H D AST 97 H ALT 274 H Alkaline Phosphatase 332 H Total Protein 6.6 Albumin 3.0 L Total Amylase 175 H Lipase 639 H HIV 1&2 Antibody Screen HIV P24 Antigen Blood Type Antibody Screen 12/29/17 11:33 WBC RBC Hgb Hct MCV MCH MCHC RDW Plt Count MPV Neutrophils % Lymphocytes % Monocytes % Eosinophils % Basophils % PT with INR INR Sodium Potassium Chloride Carbon Dioxide Anion Gap BUN Creatinine Creat Clearance w eGFR POC Glucometer 124 Random Glucose Calcium Total Bilirubin AST ALT Alkaline Phosphatase Total Protein Albumin Total Amylase Lipase HIV 1&2 Antibody Screen HIV P24 Antigen Blood Type Antibody Screen Microbiology 12/27/17 08:45 Blood - Peripheral Venous Blood Culture - Preliminary NO GROWTH OBTAINED AFTER 48 HOURS, INCUBATION TO CONTINUE FOR 3 DAYS. 12/27/17 07:55 Blood - Peripheral Venous Blood Culture - Preliminary NO GROWTH OBTAINED AFTER 48 HOURS, INCUBATION TO CONTINUE FOR 3 DAYS. 12/27/17 11:30 Urine - Urine Clean Catch Urine Culture - Final NO GROWTH OBTAINED ASSESSMENT AND PLAN: 32 yof with choledocholithiasis with obstructive jaundice, acute cholangitis and now with gall stone/Post ERCP pancreatitis. -Choledocholithiasis with worsening obstructive jaundice s/p repeat ERCP with clogged stent removal with pus drainage, and failed repeat attempt at stone extraction with sphincterotomy -Acute cholangitis -Likely secondary gall stone/Post ERCP pancreatitis from clogged biliary stent Plan: ERCP results noted. LFts improved, abdominal exam benign. Start clears. Discussed with Dr. Starks/Dr. Rogers, transfer to [facility] biliary surgeon for CCY with intra-op cholangiogram and stone removal. Continue Zosyn/IVF. GIPPx with Protonix DVTPPx with SCds dispo transfer to [facility] biliary surgery service when bed available. Plan discussed with patient and all questions answered.
--- NOTE | 2017-12-29 14:50 | DS ---
Physical Exam: SUBJECTIVE: Patient seen and examined at bedside. Pt has mild epigastric discomfort. No other complaints. OBJECTIVE: Vital Signs Period Temp Pulse Resp BP Sys/Russ Pulse Ox Last 24 Hr 97.8 F-98.3 F 60-97 14-20 83-142/46-82 97-100 PHYSICAL EXAM GENERAL: The patient is awake, alert, and fully oriented, in no acute distress. HEAD: Normal with no signs of trauma. EYES: sclera anicteric, conjunctiva clear. ENT: oropharynx clear without exudates, moist mucous membranes. NECK: Trachea midline, full range of motion, supple. LUNGS: Breath sounds equal, clear to auscultation bilaterally, no wheezes, no crackles, no accessory muscle use. HEART: Regular rate and rhythm, S1, S2 without murmur, rub or gallop. ABDOMEN: Soft, mild epigastric ttp, nondistended, normoactive bowel sounds, no guarding, no rebound, no hepatosplenomegaly, no masses. EXTREMITIES: 2+ pulses, warm, well-perfused, no edema. NEUROLOGICAL: Cranial nerves II through XII grossly intact. Normal speech, gait not observed. PSYCH: Normal mood, normal affect. SKIN: Warm, dry, normal turgor, no rashes or lesions noted. LABS Laboratory Results - last 24 hr 12/28/17 12/28/17 12/28/17 06:30 16:37 21:00 WBC 6.7 D RBC 4.06 Hgb 11.0 Hct 32.9 MCV 81.0 MCH 27.0 MCHC 33.4 RDW 14.0 Plt Count 188 D MPV 10.2 Neutrophils % 78.2 D Lymphocytes % 16.9 D Monocytes % 4.1 Eosinophils % 0.4 Basophils % 0.4 PT with INR INR Sodium Potassium Chloride Carbon Dioxide Anion Gap BUN Creatinine Creat Clearance w eGFR POC Glucometer 137 Random Glucose Calcium Total Bilirubin AST ALT Alkaline Phosphatase Total Protein Albumin Total Amylase Lipase HIV 1&2 Antibody Screen Negative HIV P24 Antigen Negative Blood Type Antibody Screen 12/28/17 12/29/17 12/29/17 21:00 02:09 06:02 WBC RBC Hgb Hct MCV MCH MCHC RDW Plt Count MPV Neutrophils % Lymphocytes % Monocytes % Eosinophils % Basophils % PT with INR INR Sodium Potassium Chloride Carbon Dioxide Anion Gap BUN Creatinine Creat Clearance w eGFR POC Glucometer 107 112 Random Glucose Calcium Total Bilirubin AST ALT Alkaline Phosphatase Total Protein Albumin Total Amylase Lipase HIV 1&2 Antibody Screen HIV P24 Antigen Blood Type O POSITIVE Antibody Screen Negative 12/29/17 12/29/17 12/29/17 07:43 07:43 07:43 WBC 4.9 RBC 4.10 Hgb 11.1 Hct 33.0 MCV 80.4 MCH 27.1 MCHC 33.7 RDW 13.9 Plt Count 176 MPV 10.3 Neutrophils % 63.5 Lymphocytes % 26.5 D Monocytes % 7.3 Eosinophils % 2.3 D Basophils % 0.4 PT with INR 10.20 INR 0.90 Sodium 139 Potassium 3.6 Chloride 105 Carbon Dioxide 23 Anion Gap 11 BUN 5 L Creatinine 0.5 L Creat Clearance w eGFR > 60 POC Glucometer Random Glucose 113 H Calcium 8.4 L Total Bilirubin 4.3 H D AST 97 H ALT 274 H Alkaline Phosphatase 332 H Total Protein 6.6 Albumin 3.0 L Total Amylase 175 H Lipase 639 H HIV 1&2 Antibody Screen HIV P24 Antigen Blood Type Antibody Screen 12/29/17 11:33 WBC RBC Hgb Hct MCV MCH MCHC RDW Plt Count MPV Neutrophils % Lymphocytes % Monocytes % Eosinophils % Basophils % PT with INR INR Sodium Potassium Chloride Carbon Dioxide Anion Gap BUN Creatinine Creat Clearance w eGFR POC Glucometer 124 Random Glucose Calcium Total Bilirubin AST ALT Alkaline Phosphatase Total Protein Albumin Total Amylase Lipase HIV 1&2 Antibody Screen HIV P24 Antigen Blood Type Antibody Screen HOSPITAL COURSE: Date of Admission:12/26/17 Date of Discharge: 12/29/17 Pt is a 32 y/o F with recently diagnosed DM and Hx cholelithiasis in 2012 who presented to ED with 10/10 abdominal pain. Pt was found to have transaminitis and choledocholithiasis with dilated CBD. Pt follows at [facility] clinic. Pt had fatty liver, ankit on U/S and transaminitis. She was made NPO, given fluids, and given pain control. She was put on Zosyn. Pt had an ERCP on 12/27/2017 for choledocholithiasis. During the procedure, 2 of 3 stones were removed, but the last stone was not able to be removed, and a stent was placed. The following day, her bilirubin climbed, so a second ERCP was done. 2 residual stones were seen, which were unfortunately unable to be removed. A draining catheter was placed, but the procedure was terminated due to some bleeding at the site of the sphincterotomy. Following the procedure, the patient was given LR, which was titrated down. The original plan was to have a chloecystectomy done following the ERCP. However , in light of the fact that residual stones remained, it was felt that the patient would benefit from a surgical intervention not offered at this facility. A call was placed to [facility], and the patient was accepted for transfer by Dr. Ciara Hernandez. Pt is aaox3, in no distress and stable for transfer to [facility] by ambulance. Minutes to complete discharge: 30 Discharge Summary Reason For Visit: ELEVATED TRANSAMINASE MEASURE.COMMON BILE DUCT ANAND Current Active Problems Calculus common bile duct with chronic cholecystitis with obstruction (Acute) Choledocholithiasis (Acute) Choledocholithiasis with obstruction (Acute) Diabetes (Acute) Dilated bile duct (Acute) Transaminitis (Acute) Condition: Fair - Instructions Diet, Activity, Other Instructions: You are being transferred to [facility] for your procedure. You will be sent by ambulance and you are going to stay on the same medications until you get there. Your home medications prior to hospital admission are as below: Metformin 500mg daily Your metformin is currently on hold. Le va a [facility] [place]. Va a ir con ambulancia, y con los mismos medicamientos que tiene ahora. Referrals: Aleena Sanchez MD [Primary Care Provider] - Disposition: TRANSFER ACUTE CARE/OTHER HOSP - Home Medications Comprehensive Discharge Medication List: Ambulatory Orders Pantoprazole Sodium [Protonix] 40 mg PO DAILY #14 tablet. 11/24/14 Metformin HCl 500 mg PO DAILY 12/26/17 Heparin - 5,000 unit SQ BID vial 12/29/17 Insulin Sliding Scale [Novolog Vial Sliding Scale -] 1 vial SQ ACHS units 12/29 Insulin Sliding Scale [Novolog Vial Sliding Scale -] 1 vial SQ Q6HPO units 05/10 Morphine Sulfate 2 mg IVPUSH Q4H PRN vial MDD 4 12/29/17 Ondansetron Injection [Zofran Injection] 4 mg IVPUSH Q6H PRN vial 12/29/17 Piperacillin/Tazob 4.5 gm [Zosyn -] 4.5 gm IVPB Q8H-IV vial 12/29/17 Ursodiol [Actigal -] 300 mg PO BID capsule 12/29/17 This patient is new to me today: No Emergency Visit: No Critical Care patient: No - Discharge Referral Referred to [facility] Med P.C.: No
[2017-12-29 17:01] VITALS: BP 118/70; PULSE 66; TEMP 98.3
--- NOTE | 2017-12-29 18:37 | PN ---
Physical Exam: SUBJECTIVE:Patient seen and examined at bedside. Pt feels well at this time. No complaints. Afebrile. Stable. Pt has 2 residual stones and a drain in CBD. OBJECTIVE: Vital Signs Period Temp Pulse Resp BP Sys/Russ Pulse Ox Last 24 Hr 97.8 F-98.3 F 66-77 18-20 115-132/68-75 99-100 GENERAL: The patient is awake, alert, and fully oriented, in no acute distress. HEAD: Normal with no signs of trauma. EYES: sclera anicteric, conjunctiva clear. No ptosis. ENT: oropharynx clear without exudates, moist mucous membranes. NECK: Trachea midline, full range of motion, supple. LUNGS: Breath sounds equal, clear to auscultation bilaterally, no wheezes, no crackles, no accessory muscle use. HEART: Regular rate and rhythm, S1, S2 without murmur, rub or gallop. ABDOMEN: Soft, epigastric tenderness, nondistended, normoactive bowel sounds, no guarding, no rebound, no hepatosplenomegaly, no masses. EXTREMITIES: 2+ pulses, warm, well-perfused, no edema. NEUROLOGICAL: Cranial nerves II through XII grossly intact. Normal speech, gait not observed. PSYCH: Normal mood, normal affect. SKIN: Warm, dry, normal turgor, no rashes or lesions noted Laboratory Results - last 24 hr 12/28/17 12/28/17 12/29/17 21:00 21:00 02:09 WBC 6.7 D RBC 4.06 Hgb 11.0 Hct 32.9 MCV 81.0 MCH 27.0 MCHC 33.4 RDW 14.0 Plt Count 188 D MPV 10.2 Neutrophils % 78.2 D Lymphocytes % 16.9 D Monocytes % 4.1 Eosinophils % 0.4 Basophils % 0.4 PT with INR INR Sodium Potassium Chloride Carbon Dioxide Anion Gap BUN Creatinine Creat Clearance w eGFR POC Glucometer 107 Random Glucose Calcium Total Bilirubin AST ALT Alkaline Phosphatase Total Protein Albumin Total Amylase Lipase Blood Type O POSITIVE Antibody Screen Negative 12/29/17 12/29/17 12/29/17 06:02 07:43 07:43 WBC 4.9 RBC 4.10 Hgb 11.1 Hct 33.0 MCV 80.4 MCH 27.1 MCHC 33.7 RDW 13.9 Plt Count 176 MPV 10.3 Neutrophils % 63.5 Lymphocytes % 26.5 D Monocytes % 7.3 Eosinophils % 2.3 D Basophils % 0.4 PT with INR INR Sodium 139 Potassium 3.6 Chloride 105 Carbon Dioxide 23 Anion Gap 11 BUN 5 L Creatinine 0.5 L Creat Clearance w eGFR > 60 POC Glucometer 112 Random Glucose 113 H Calcium 8.4 L Total Bilirubin 4.3 H D AST 97 H ALT 274 H Alkaline Phosphatase 332 H Total Protein 6.6 Albumin 3.0 L Total Amylase 175 H Lipase 639 H Blood Type Antibody Screen 12/29/17 12/29/17 12/29/17 07:43 11:33 17:04 WBC RBC Hgb Hct MCV MCH MCHC RDW Plt Count MPV Neutrophils % Lymphocytes % Monocytes % Eosinophils % Basophils % PT with INR 10.20 INR 0.90 Sodium Potassium Chloride Carbon Dioxide Anion Gap BUN Creatinine Creat Clearance w eGFR POC Glucometer 124 127 Random Glucose Calcium Total Bilirubin AST ALT Alkaline Phosphatase Total Protein Albumin Total Amylase Lipase Blood Type Antibody Screen Active Medications Generic Name Dose Route Start Last Admin Trade Name Freq PRN Reason Stop Dose Admin Piperacillin Sod/Tazobactam 100 mls @ 200 mls/hr 12/27/17 10:15 12/29/17 17: 02 Sod 4.5 gm/ Dextrose IVPB 200 mls/hr Q8H-IV MAULIK Administration Protocol Lactated Ringer's 1,000 ml in 1,000 mls @ 150 mls/hr 12/29/17 09:30 12/29/17 17:04 Lactated Ringers Solution IV 150 mls/hr ASDIR MAULIK Administration Insulin Aspart 1 vial 12/28/17 18:00 12/29/17 17:05 Novolog Vial Sliding Scale - SQ Not Given Q6HPO MAULIK Protocol Morphine Sulfate 2 mg 12/26/17 22:14 12/29/17 02:06 Morphine Sulfate IVPUSH 2 mg Q4H PRN Administration PAIN LEVEL 6-10 Ondansetron HCl 4 mg 12/26/17 22:22 12/28/17 16:59 Zofran Injection IVPUSH 4 mg Q6H PRN Administration NAUSEA Pantoprazole Sodium 40 mg 12/27/17 10:00 12/29/17 14:17 Protonix - PO 40 mg DAILY MAULIK Administration Ursodiol 300 mg 12/27/17 22:00 12/29/17 11:52 Actigal - PO Not Given BID [facility] ASSESSMENT/PLAN: Pt is a 32 y/o F with recently diagnosed DM and Hx cholelithiasis in 2012 who presented to ED with 10/10 abdominal pain. Pt was found to have transaminitis and choledocholithiasis with dilated CBD. Pt follows at [facility] clinic. #choledocholithiasis and cholangitis -Transaminitis on admission -Fatty liver on U/S -Pt went for repeat ERCP : 2 remained. Stent was removed and pus flowed out, so double pigtail stent was placed. Procedure stopped due to bleeding from sphincterotomy site. -Pt seen by surgery. -Pt seen by ID. Continued with Zosyn perioperatively. -Plan to transfer pt to [facility]. Pt accepted by Dr. Ciara Hernandez. Pt will need procedure to remove stones and GB simultaneously. #FEN -on LR at 150 tapering -alejandrotes wnl -NPO #DVT ppx -HSQ Salinas Barclay MD PGY-1 IM Visit type - Emergency Visit Emergency Visit: No - New Patient This patient is new to me today: No - Critical Care Critical Care patient: No
--- NOTE | 2017-12-30 17:04 | PATH ---
Surgical Pathology Report Patient Name: ELIZABETH RODRÍGUEZ Med. Rec. #: [id number] /Age/Gender: 1985 (Age: 32) / F Account: [id number] Location: [address] [place] [address]/[facility] Taken: 12/28/2017 Received: 12/29/2017 Reported: 12/30/2017 Physicians: Amada Ayoub M.D. Specimen(s) Received STENT FOREIGN BODY Clinical History Jaundice, choledocholithiasis Final Diagnosis STENT, REMOVAL: STENT. MACROSCOPIC DIAGNOSIS. Electronically Signed Cha Paris M.D. Gross Description Received fresh, labeled with the patient's name and indicated on the requisition to be a stent, is an 8 cm in length blue portion of tubing, consistent with a stent. No soft tissue is present. No sections are submitted, gross only. /12/29/2017 saudi/12/29/2017
== END 2017-12-29 19:26 | disposition short-term general hospital (02) | DRG 261 ==
LOC: JER 15:38 → JERBED 21:37 → J5S 12-27 00:24
PROVIDERS: ADMIT Internal Medicine; ATTEND Hospitalist
PROC: BF10YZZ Fluoroscopy of Bile Ducts using Other Contrast (ICD-10-PCS; 2017-12-27)
PROC: 0F798DZ Dilation of Common Bile Duct with Intraluminal Device, Via Natural or Artificial Opening Endoscopic (ICD-10-PCS; 2017-12-27)
PROC: 0FC48ZZ Extirpation of Matter from Gallbladder, Via Natural or Artificial Opening Endoscopic (ICD-10-PCS; principal; 2017-12-27 11:45)
PROC: 0FC48ZZ Extirpation of Matter from Gallbladder, Via Natural or Artificial Opening Endoscopic (ICD-10-PCS; 2017-12-28)
PROC: BF10YZZ Fluoroscopy of Bile Ducts using Other Contrast (ICD-10-PCS; 2017-12-28)
PROC: 0F798DZ Dilation of Common Bile Duct with Intraluminal Device, Via Natural or Artificial Opening Endoscopic (ICD-10-PCS; 2017-12-28)
DX: K80.45 Calculus of bile duct with chronic cholecystitis with obstruction (principal); E11.9 Type 2 diabetes mellitus without complications; R74.0 Nonspecific elevation of levels of transaminase and lactic acid dehydrogenase [LDH]; K76.0 Fatty (change of) liver, not elsewhere classified
CPT/HCPCS: 36415; 74330-TC; 76000-TC-FY; 76705-TC; 80053; 81003; 82150; 82248; 82550; 82962; 83690; 83735; 84100; 84484; 84703; 85025; 85027; 85610; 85730; 86140; 86850; 86900; 86901; 87040; 87086; 87389; 88300-TC; 93005; 93010; 99285-25; J1644; J7030